=== PATIENT | male | born 1980 | race Hispanic/Latino ===

== ENCOUNTER 2021-09-03 14:27 | Inpatient (IN) | payer OTHER ==
[~2021-09-03] VITALS: Ht 170.2 cm; Wt 95.3 kg
[2021-09-03] VITALS (10 sets, daily range): BP systolic 122–146; BP diastolic 73–83
[2021-09-03 15:00] LABS: BASOPHILS % 0.3 % (0.0-1.0); HEMATOCRIT 45.4 % (38.2-49.6); HEMOGLOBIN 15.5 g/dL (14.0-18.0); LYMPHOCYTES # (AUTO) 0.6 (1.0-3.2); LYMPHOCYTES % 9.8 % (18.0-39.1); MEAN CORPUSCULAR HEMOGLOBIN 30.2 pg (28-32); MEAN CORPUSCULAR HGB CONC 34.1 g/dL (31-35); MEAN CORPUSCULAR VOLUME 88.5 fL (81-99); MONOCYTES # (AUTO) 0.3 (0.2-0.8); MONOCYTES % 5.2 % (4.4-11.3); NEUTROPHILS % 84.2 % (38.7-80.0); PLATELET COUNT 271 x10e3/uL (140-360); RED BLOOD COUNT 5.13 x10e6/uL (4.3-5.7); RED CELL DISTRIBUTION WIDTH 11.7 % (11.7-14.4)
[2021-09-03] MEDS ORDERED: SODIUM CHLORIDE 0.9% 1000ML 1,000 ML IV ONE (15:00)
[2021-09-03] MEDS ORDERED: METHYLPREDNISOLONE SOD SUCC 125 MG/2ML VIAL IV ONE (15:00)
[2021-09-03] MEDS ORDERED: CEFTRIAXONE 1 GM VIAL IM ONE (15:00)
[2021-09-03] MEDS ORDERED: SODIUM CHLORIDE 0.9% 1000ML 1,000 ML ONE ×2 (15:03→17:14)
[2021-09-03] MEDS ORDERED: SODIUM CHLORIDE 0.9% 250ML 250 ML ONE (15:09)
[2021-09-03] MEDS ORDERED: SODIUM CHLORIDE 0.9% 1000ML 1,000 ML IV SCH (15:30)
[2021-09-03] MEDS ORDERED: CEFTRIAXONE 1 GM in SODIUM CHLORIDE 0.9% 50ML 50 ML IV ONE (15:30)
[2021-09-03 15:35] LABS: ALBUMIN 3.3 g/dL (3.5-5.0); ALBUMIN/GLOBULIN RATIO 0.8 (0.8-2.0); ANION GAP 16.8 mmol/L (8-16); CALCIUM 8.7 mg/dL (8.4-10.2); CREATININE, SERUM 0.97 mg/dL (0.72-1.25); POTASSIUM 3.8 mmol/L (3.5-5.1)
[2021-09-03] MEDS ORDERED: ACETAMINOPHEN 325 MG TAB PO ONE (16:00)
[2021-09-03] MEDS: SODIUM CHLORIDE 0.9% 1000ML 1,000 ML IV SCH (17:26)
[2021-09-03] MEDS ORDERED: ALBUTEROL SULFATE HFA 8GM INHALATION AEROSOL INH PRN (17:30)
[2021-09-03] MEDS ORDERED: REMDESIVIR 100MG 200 MG in SODIUM CHLORIDE 0.9% 100 ML IV ONE (18:00)
[2021-09-03] MEDS ORDERED: TOCILIZUMAB 400 MG in SODIUM CHLORIDE 0.9% 100 ML IV SCH (19:30)
[2021-09-03] MEDS: ATORVASTATIN 10 MG TAB PO SCH (20:40)
[2021-09-03] MEDS ORDERED: DEXTROSE 50% SYRINGE 50 ML IV PRN (21:15)
[2021-09-03] MEDS: INSULIN LISPRO 100 UNIT/1 ML 3ML VIAL SQ SCH (21:58)
[2021-09-03] MEDS: ALBUTEROL SULFATE HFA 8GM INHALATION AEROSOL INH SCH (23:00)
[2021-09-04] VITALS (27 sets, daily range): BP systolic 122–154; BP diastolic 73–90
[2021-09-04] MEDS: SODIUM CHLORIDE 0.9% 1000ML 1,000 ML IV SCH ×2 (05:39→20:52)
[2021-09-04] MEDS: ACETAMINOPHEN 325 MG TAB PO PRN ×2 (06:40→19:42)
[2021-09-04] MEDS: ALBUTEROL SULFATE HFA 8GM INHALATION AEROSOL INH SCH ×3 (06:52→20:30)
[2021-09-04] MEDS: ZINC SULFATE 50 MG CAP PO SCH (08:54)
[2021-09-04] MEDS: ENOXAPARIN SOD INJ 60 MG/0.6 ML SYR SC SCH ×2 (08:54→17:26)
[2021-09-04] MEDS: DEXAMETHASONE SOD PHOS 10 MG/1 ML VIAL IV SCH (08:54)
[2021-09-04] MEDS: GEMFIBROZIL 600 MG TAB PO SCH ×2 (08:54→17:26)
[2021-09-04] MEDS: ASCORBIC ACID 500 MG TAB PO SCH ×2 (08:54→17:26)
[2021-09-04] MEDS: CEFTRIAXONE 2 GM in SODIUM CHLORIDE 0.9% 100 ML IV SCH (08:54)
[2021-09-04 09:09] LABS: BASOPHILS % 0.2 % (0.0-1.0); HEMATOCRIT 36.5 % (38.2-49.6); HEMOGLOBIN 12.4 g/dL (14.0-18.0); LYMPHOCYTES # (AUTO) 0.7 (1.0-3.2); LYMPHOCYTES % 11.2 % (18.0-39.1); MEAN CORPUSCULAR HEMOGLOBIN 30.8 pg (28-32); MEAN CORPUSCULAR VOLUME 90.8 fL (81-99); MONOCYTES # (AUTO) 0.4 (0.2-0.8); MONOCYTES % 7.4 % (4.4-11.3); NEUTROPHILS # (AUTO) 4.7 (2.1-6.9); NEUTROPHILS % 80.7 % (38.7-80.0); PLATELET COUNT 278 x10e3/uL (140-360); RED BLOOD COUNT 4.02 x10e6/uL (4.3-5.7); RED CELL DISTRIBUTION WIDTH 11.9 % (11.7-14.4)
[2021-09-04 09:35] LABS: ALBUMIN 2.3 g/dL (3.5-5.0); ALBUMIN/GLOBULIN RATIO 0.8 (0.8-2.0); ANION GAP 13.1 mmol/L (8-16); CREATININE, SERUM 0.65 mg/dL (0.72-1.25); POTASSIUM 3.1 mmol/L (3.5-5.1)
[2021-09-04 09:37] LABS: CALCIUM 6.9 mg/dL (8.4-10.2)
[2021-09-04] MEDS: INSULIN LISPRO 100 UNIT/1 ML 3ML VIAL SQ SCH ×3 (11:30→20:52)
[2021-09-04] MEDS: ATORVASTATIN 10 MG TAB PO SCH (20:51)
[2021-09-05] VITALS (23 sets, daily range): BP systolic 126–152; BP diastolic 61–87
[2021-09-05] MEDS: ALBUTEROL SULFATE HFA 8GM INHALATION AEROSOL INH SCH ×4 (00:15→19:15)
[2021-09-05] MEDS: ACETAMINOPHEN 325 MG TAB PO PRN ×2 (04:05→20:48)
[2021-09-05 05:24] LABS: BASOPHILS % 0.4 % (0.0-1.0); EOSINOPHILS % 0.2 % (0.0-6.0); HEMOGLOBIN 12.7 g/dL (14.0-18.0); LYMPHOCYTES # (AUTO) 0.7 (1.0-3.2); LYMPHOCYTES % 12.1 % (18.0-39.1); MEAN CORPUSCULAR HEMOGLOBIN 30.7 pg (28-32); MEAN CORPUSCULAR HGB CONC 33.4 g/dL (31-35); MEAN CORPUSCULAR VOLUME 91.8 fL (81-99); MONOCYTES # (AUTO) 0.3 (0.2-0.8); MONOCYTES % 6.1 % (4.4-11.3); NEUTROPHILS # (AUTO) 4.5 (2.1-6.9); NEUTROPHILS % 80.7 % (38.7-80.0); PLATELET COUNT 333 x10e3/uL (140-360); RED BLOOD COUNT 4.14 x10e6/uL (4.3-5.7); RED CELL DISTRIBUTION WIDTH 11.9 % (11.7-14.4)
[2021-09-05 05:58] LABS: ALBUMIN 2.5 g/dL (3.5-5.0); ALBUMIN/GLOBULIN RATIO 0.8 (0.8-2.0); ANION GAP 12.6 mmol/L (8-16); CREATININE, SERUM 0.76 mg/dL (0.72-1.25); POTASSIUM 3.6 mmol/L (3.5-5.1)
[2021-09-05] MEDS: CEFTRIAXONE 2 GM in SODIUM CHLORIDE 0.9% 100 ML IV SCH (08:02)
[2021-09-05] MEDS: DEXAMETHASONE SOD PHOS 10 MG/1 ML VIAL IV SCH (08:02)
[2021-09-05] MEDS: ASCORBIC ACID 500 MG TAB PO SCH ×2 (08:02→17:19)
[2021-09-05] MEDS: GEMFIBROZIL 600 MG TAB PO SCH ×2 (08:02→17:19)
[2021-09-05] MEDS: ZINC SULFATE 50 MG CAP PO SCH (08:03)
[2021-09-05] MEDS: ENOXAPARIN SOD INJ 60 MG/0.6 ML SYR SC SCH ×2 (08:03→17:19)
[2021-09-05] MEDS: INSULIN LISPRO 100 UNIT/1 ML 3ML VIAL SQ SCH ×4 (08:03→20:56)
[2021-09-05] MEDS: BARICITINIB 2 MG TABLET PO SCH (15:29)
[2021-09-05] MEDS ORDERED: REMDESIVIR 100MG 100 MG in SODIUM CHLORIDE 0.9% 100 ML IV SCH (18:00)
[2021-09-05] MEDS: SODIUM CHLORIDE 0.9% 1000ML 1,000 ML IV SCH (20:12)
[2021-09-05] MEDS: REMDESIVIR 100MG 100 MG in SODIUM CHLORIDE 0.9% 100 ML IV SCH (20:44)
[2021-09-05] MEDS: ATORVASTATIN 10 MG TAB PO SCH (20:48)
[2021-09-06] VITALS (26 sets, daily range): BP systolic 112–163; BP diastolic 59–103
[2021-09-06] MEDS: ALBUTEROL SULFATE HFA 8GM INHALATION AEROSOL INH SCH ×5 (02:10→23:50)
[2021-09-06] MEDS: ACETAMINOPHEN 325 MG TAB PO PRN ×2 (04:45→11:48)
[2021-09-06 05:38] LABS: BASOPHILS % 0.2 % (0.0-1.0); EOSINOPHILS # (AUTO) 0.1 (0.0-0.4); EOSINOPHILS % 0.6 % (0.0-6.0); HEMATOCRIT 38.1 % (38.2-49.6); HEMOGLOBIN 13.2 g/dL (14.0-18.0); LYMPHOCYTES # (AUTO) 1.1 (1.0-3.2); LYMPHOCYTES % 12.5 % (18.0-39.1); MEAN CORPUSCULAR HEMOGLOBIN 30.5 pg (28-32); MEAN CORPUSCULAR HGB CONC 34.6 g/dL (31-35); MONOCYTES # (AUTO) 0.4 (0.2-0.8); MONOCYTES % 4.5 % (4.4-11.3); NEUTROPHILS % 81.4 % (38.7-80.0); PLATELET COUNT 338 x10e3/uL (140-360); RED BLOOD COUNT 4.33 x10e6/uL (4.3-5.7)
[2021-09-06 06:09] LABS: ALBUMIN 2.4 g/dL (3.5-5.0); ALBUMIN/GLOBULIN RATIO 0.6 (0.8-2.0); ANION GAP 15.8 mmol/L (8-16); CALCIUM 8.4 mg/dL (8.4-10.2); CREATININE, SERUM 0.73 mg/dL (0.72-1.25); POTASSIUM 3.8 mmol/L (3.5-5.1)
[2021-09-06] MEDS: INSULIN LISPRO 100 UNIT/1 ML 3ML VIAL SQ SCH ×5 (07:30→20:35)
[2021-09-06] MEDS: ASCORBIC ACID 500 MG TAB PO SCH ×2 (08:22→16:31)
[2021-09-06] MEDS: CEFTRIAXONE 2 GM in SODIUM CHLORIDE 0.9% 100 ML IV SCH (08:22)
[2021-09-06] MEDS: DEXAMETHASONE SOD PHOS 10 MG/1 ML VIAL IV SCH (08:22)
[2021-09-06] MEDS: BARICITINIB 2 MG TABLET PO SCH (08:22)
[2021-09-06] MEDS: ZINC SULFATE 50 MG CAP PO SCH (08:22)
[2021-09-06] MEDS: ENOXAPARIN SOD INJ 60 MG/0.6 ML SYR SC SCH ×2 (08:22→16:31)
[2021-09-06] MEDS: GEMFIBROZIL 600 MG TAB PO SCH ×2 (08:22→16:31)
[2021-09-06] MEDS ORDERED: BARICITINIB 2 MG TABLET PO SCH (09:00)
[2021-09-06] MEDS ORDERED: DEXMEDETOMIDINE 100 ML IV PRN (10:45)
[2021-09-06] MEDS: DEXMEDETOMIDINE 100 ML IV PRN ×2 (14:12→21:15)
[2021-09-06] MEDS: SODIUM CHLORIDE 0.9% 1000ML 1,000 ML IV SCH (15:20)
[2021-09-06] MEDS ORDERED: ONDANSETRON HCL INJ 2MG/ML 2ML 2 MG/ML VIAL IV PRN (17:15)
[2021-09-06] MEDS: REMDESIVIR 100MG 100 MG in SODIUM CHLORIDE 0.9% 100 ML IV SCH (20:03)
[2021-09-06] MEDS: ATORVASTATIN 10 MG TAB PO SCH (20:03)
[2021-09-07] VITALS (16 sets, daily range): BP systolic 104–148; BP diastolic 65–95
[2021-09-07] MEDS: ACETAMINOPHEN 325 MG TAB PO PRN ×2 (05:28→20:19)
[2021-09-07] MEDS: ALBUTEROL SULFATE HFA 8GM INHALATION AEROSOL INH SCH ×3 (06:00→18:00)
[2021-09-07] MEDS: DEXMEDETOMIDINE 100 ML IV PRN ×3 (06:19→22:20)
[2021-09-07] MEDS: SODIUM CHLORIDE 0.9% 1000ML 1,000 ML IV SCH ×2 (06:20→21:22)
[2021-09-07 06:31] LABS: BASOPHILS % 0.1 % (0.0-1.0); EOSINOPHILS % 0.4 % (0.0-6.0); HEMATOCRIT 42.7 % (38.2-49.6); HEMOGLOBIN 14.4 g/dL (14.0-18.0); LYMPHOCYTES # (AUTO) 0.4 (1.0-3.2); LYMPHOCYTES % 4.5 % (18.0-39.1); MEAN CORPUSCULAR HEMOGLOBIN 30.3 pg (28-32); MEAN CORPUSCULAR HGB CONC 33.7 g/dL (31-35); MEAN CORPUSCULAR VOLUME 89.7 fL (81-99); MONOCYTES # (AUTO) 0.3 (0.2-0.8); MONOCYTES % 3.6 % (4.4-11.3); NEUTROPHILS # (AUTO) 8.1 (2.1-6.9); NEUTROPHILS % 90.3 % (38.7-80.0); PLATELET COUNT 253 x10e3/uL (140-360); RED BLOOD COUNT 4.76 x10e6/uL (4.3-5.7); RED CELL DISTRIBUTION WIDTH 12.1 % (11.7-14.4)
[2021-09-07 06:55] LABS: ALBUMIN 2.3 g/dL (3.5-5.0); ALBUMIN/GLOBULIN RATIO 0.5 (0.8-2.0); ANION GAP 17.4 mmol/L (8-16); CALCIUM 8.3 mg/dL (8.4-10.2); CREATININE, SERUM 0.8 mg/dL (0.72-1.25); POTASSIUM 4.4 mmol/L (3.5-5.1)
[2021-09-07] MEDS: CEFTRIAXONE 2 GM in SODIUM CHLORIDE 0.9% 100 ML IV SCH (08:25)
[2021-09-07] MEDS: DEXAMETHASONE SOD PHOS 10 MG/1 ML VIAL IV SCH (08:25)
[2021-09-07] MEDS: ENOXAPARIN SOD INJ 60 MG/0.6 ML SYR SC SCH (08:26)
[2021-09-07] MEDS: ZINC SULFATE 50 MG CAP PO SCH (09:00)
[2021-09-07] MEDS: ASCORBIC ACID 500 MG TAB PO SCH ×2 (09:00→16:33)
[2021-09-07] MEDS: GEMFIBROZIL 600 MG TAB PO SCH ×2 (09:00→16:31)
[2021-09-07] MEDS: BARICITINIB 2 MG TABLET PO SCH (09:00)
[2021-09-07] MEDS: INSULIN LISPRO 100 UNIT/1 ML 3ML VIAL SQ SCH ×3 (12:22→20:39)
[2021-09-07] MEDS ORDERED: WATER STERILE 10 ML VIAL ONE ×2 (14:25→14:26)
[2021-09-07] MEDS ORDERED: ETOMIDATE 2 MG/ML 10 ML INJ IV ONE (14:25)
[2021-09-07] MEDS ORDERED: VECURONIUM BROMIDE FOR INJ 20 MG VIAL ONE (14:26)
[2021-09-07] MEDS ORDERED: SUCCINYLCHOLINE CHLORIDE 20 MG/ML 10ML VIAL ONE (14:26)
[2021-09-07] MEDS: HEPARIN 25,000 UNIT 1,400 UNIT in DEXTROSE 5% 250ML 250 ML IV SCH ×2 (15:59→22:19)
[2021-09-07] MEDS: REMDESIVIR 100MG 100 MG in SODIUM CHLORIDE 0.9% 100 ML IV SCH (20:18)
[2021-09-07] MEDS: ATORVASTATIN 10 MG TAB PO SCH (20:18)
[2021-09-08] VITALS (24 sets, daily range): BP systolic 81–144; BP diastolic 48–96
[2021-09-08 04:10] LABS: BASOPHILS # (AUTO) 0.1 (0.0-0.1); BASOPHILS % 0.4 % (0.0-1.0); EOSINOPHILS # (AUTO) 0.1 (0.0-0.4); EOSINOPHILS % 0.4 % (0.0-6.0); HEMATOCRIT 49.6 % (38.2-49.6); HEMOGLOBIN 15.9 g/dL (14.0-18.0); LYMPHOCYTES # (AUTO) 1.2 (1.0-3.2); MEAN CORPUSCULAR HEMOGLOBIN 30.5 pg (28-32); MEAN CORPUSCULAR HGB CONC 32.1 g/dL (31-35); MONOCYTES # (AUTO) 0.4 (0.2-0.8); MONOCYTES % 2.9 % (4.4-11.3); NEUTROPHILS # (AUTO) 11.8 (2.1-6.9); NEUTROPHILS % 86.4 % (38.7-80.0); PLATELET COUNT 269 x10e3/uL (140-360); RED BLOOD COUNT 5.22 x10e6/uL (4.3-5.7); RED CELL DISTRIBUTION WIDTH 12.6 % (11.7-14.4)
[2021-09-08 04:29] LABS: ALBUMIN 2.2 g/dL (3.5-5.0); ALBUMIN/GLOBULIN RATIO 0.4 (0.8-2.0); ANION GAP 18.8 mmol/L (8-16); CALCIUM 8.6 mg/dL (8.4-10.2); CREATININE, SERUM 0.96 mg/dL (0.72-1.25); POTASSIUM 4.8 mmol/L (3.5-5.1)
[2021-09-08] MEDS: HEPARIN 25,000 UNIT 1,400 UNIT in DEXTROSE 5% 250ML 250 ML IV SCH ×4 (04:29→22:04)
[2021-09-08] MEDS: DEXMEDETOMIDINE 100 ML IV PRN (05:47)
[2021-09-08] MEDS: ALBUTEROL SULFATE HFA 8GM INHALATION AEROSOL INH SCH ×4 (06:00→18:00)
[2021-09-08] MEDS ORDERED: FENTANYL 2000MCG/NS 250 250 ML ONE (06:31)
[2021-09-08] MEDS ORDERED: MIDAZOLAM HCL 5MG/ML 10ML VIAL 100 ML IV ONE (06:31)
[2021-09-08] MEDS ORDERED: PROPOFOL IV EMULSION 10MG/ML 100 ML ONE (06:51)
[2021-09-08] MEDS: INSULIN LISPRO 100 UNIT/1 ML 3ML VIAL SQ SCH ×4 (07:30→21:05)
[2021-09-08 08:17] LABS: ABG HCO3 19 mmol/L (22-26); ABG PCO2 59 mmHg (35-45); ABG PH 7.13 (7.35-7.45); ABG PO2 104 mmHg (80-105); ABG TCO2 21
[2021-09-08] MEDS ORDERED: SODIUM CHLORIDE 0.9% IV ONE (08:30)
[2021-09-08] MEDS ORDERED: ACETAMINOPHEN 1000 MG/100 ML IV PRN (09:00)
[2021-09-08] MEDS: DEXAMETHASONE SOD PHOS 10 MG/1 ML VIAL IV SCH (09:24)
[2021-09-08] MEDS: CEFTRIAXONE 2 GM in SODIUM CHLORIDE 0.9% 100 ML IV SCH (09:24)
[2021-09-08 10:33] LABS: ABG PH 7.13 (7.35-7.45)
[2021-09-08 10:34] LABS: ABG PCO2 62 mmHg (35-45); ABG PO2 128 mmHg (80-105)
[2021-09-08 10:35] LABS: ABG HCO3 21 mmol/L (22-26); ABG TCO2 23
[2021-09-08] MEDS: BARICITINIB 2 MG TABLET PO SCH (10:38)
[2021-09-08] MEDS: ASCORBIC ACID 500 MG TAB PO SCH ×2 (10:38→17:07)
[2021-09-08] MEDS: ZINC SULFATE 50 MG CAP PO SCH (10:38)
[2021-09-08] MEDS: GEMFIBROZIL 600 MG TAB PO SCH ×2 (10:38→17:07)
[2021-09-08] MEDS: SODIUM CHLORIDE 0.9% 1000ML 1,000 ML IV SCH ×2 (10:38→13:39)
[2021-09-08] MEDS: MIDAZOLAM HCL 5MG/ML 10ML VIAL 100 ML IV PRN ×2 (11:33→22:22)
[2021-09-08] MEDS: FENTANYL 2000MCG/NS 250 250 ML IV PRN ×2 (12:58→19:49)
[2021-09-08] MEDS: PIPERACILLIN/TAZOBACTAM 3.375 GM in SODIUM CHLORIDE 0.9% 50ML 50 ML IV SCH ×2 (13:39→21:11)
[2021-09-08] MEDS: REMDESIVIR 100MG 100 MG in SODIUM CHLORIDE 0.9% 100 ML IV SCH (20:30)
[2021-09-08] MEDS ORDERED: Vancomycin IV 1 GM in SODIUM CHLORIDE 0.9% 250ML 250 ML IV ONE (20:30)
[2021-09-08] MEDS: ATORVASTATIN 10 MG TAB PO SCH (21:11)
[2021-09-08] MEDS: ROCURONIUM 1250MG/NS 250 250 ML IV PRN (22:20)
[2021-09-09] VITALS (25 sets, daily range): BP systolic 108–148; BP diastolic 62–82
[2021-09-09] MEDS: HEPARIN 25,000 UNIT 1,400 UNIT in DEXTROSE 5% 250ML 250 ML IV SCH ×3 (01:24→19:27)
[2021-09-09] MEDS: FENTANYL 2000MCG/NS 250 250 ML IV PRN ×3 (02:33→23:56)
[2021-09-09] MEDS: MIDAZOLAM HCL 5MG/ML 10ML VIAL 100 ML IV PRN ×5 (03:12→23:58)
[2021-09-09] MEDS: SODIUM CHLORIDE 0.9% 1000ML 1,000 ML IV SCH (03:16)
[2021-09-09 04:46] LABS: BASOPHILS % 0.1 % (0.0-1.0); EOSINOPHILS % 0.1 % (0.0-6.0); HEMATOCRIT 36.7 % (38.2-49.6); HEMOGLOBIN 11.9 g/dL (14.0-18.0); LYMPHOCYTES # (AUTO) 0.8 (1.0-3.2); LYMPHOCYTES % 9.8 % (18.0-39.1); MEAN CORPUSCULAR HEMOGLOBIN 30.5 pg (28-32); MEAN CORPUSCULAR HGB CONC 32.4 g/dL (31-35); MEAN CORPUSCULAR VOLUME 94.1 fL (81-99); MONOCYTES # (AUTO) 0.3 (0.2-0.8); MONOCYTES % 3.5 % (4.4-11.3); NEUTROPHILS # (AUTO) 7.3 (2.1-6.9); PLATELET COUNT 313 x10e3/uL (140-360); RED CELL DISTRIBUTION WIDTH 13.2 % (11.7-14.4)
[2021-09-09] MEDS: PROPOFOL IV EMULSION 10MG/ML 100 ML IV PRN ×2 (04:50→17:04)
[2021-09-09] MEDS: PIPERACILLIN/TAZOBACTAM 3.375 GM in SODIUM CHLORIDE 0.9% 50ML 50 ML IV SCH (05:17)
[2021-09-09 05:26] LABS: ALBUMIN 1.7 g/dL (3.5-5.0); ALBUMIN/GLOBULIN RATIO 0.4 (0.8-2.0); ANION GAP 14.1 mmol/L (8-16); CALCIUM 7.2 mg/dL (8.4-10.2); POTASSIUM 5.1 mmol/L (3.5-5.1)
[2021-09-09] MEDS: ALBUTEROL SULFATE HFA 8GM INHALATION AEROSOL INH SCH ×4 (06:00→18:00)
[2021-09-09] MEDS: INSULIN LISPRO 100 UNIT/1 ML 3ML VIAL SQ SCH ×4 (07:30→23:55)
[2021-09-09] MEDS: ASCORBIC ACID 500 MG TAB PO SCH ×2 (08:19→16:30)
[2021-09-09] MEDS: ZINC SULFATE 50 MG CAP PO SCH (08:19)
[2021-09-09] MEDS: DEXAMETHASONE SOD PHOS 10 MG/1 ML VIAL IV SCH (08:19)
[2021-09-09 08:44] LABS: ABG HCO3 20 mmol/L (22-26); ABG PCO2 37 mmHg (35-45); ABG PH 7.34 (7.35-7.45); ABG PO2 219 mmHg (80-105); ABG TCO2 21
[2021-09-09] MEDS ORDERED: Vancomycin IV 1 GM in SODIUM CHLORIDE 0.9% 250ML 250 ML IV SCH (09:00)
[2021-09-09] MEDS ORDERED: ALBUMIN 25% 25GM 100ML 0.25 GM/ML BTL IV NR ×2 (12:45→16:00)
[2021-09-09] MEDS: LINEZOLID 600 MG/D5W 300ML 300 ML IV SCH (13:57)
[2021-09-09] MEDS ORDERED: SODIUM CHLORIDE 0.9% 1000ML 1,000 ML IV ONE (14:45)
[2021-09-09] MEDS ORDERED: SODIUM BICARBONATE 8.4% 150 ML in DEXTROSE 5% 1,000 ML IV ONE (15:00)
[2021-09-09] MEDS ORDERED: ALBUMIN 25% 25GM 100ML 100 ML ONE (16:16)
[2021-09-09] MEDS ORDERED: PIPERACILLIN/TAZOBACTAM 3.375 GM in SODIUM CHLORIDE 0.9% 50ML 50 ML IV SCH (17:00)
[2021-09-09] MEDS ORDERED: HEPARIN 25,000 UNIT DRIP IV ONE (19:36)
[2021-09-09] MEDS: ROCURONIUM 1250MG/NS 250 250 ML IV PRN (20:16)
[2021-09-09] MEDS: ATORVASTATIN 10 MG TAB PO SCH (22:30)
[2021-09-10] VITALS (25 sets, daily range): BP systolic 130–154; BP diastolic 63–89
[2021-09-10] MEDS: LINEZOLID 600 MG/D5W 300ML 300 ML IV SCH ×2 (00:20→13:35)
[2021-09-10] MEDS: ALBUTEROL SULFATE HFA 8GM INHALATION AEROSOL INH SCH ×4 (06:00→18:00)
[2021-09-10] MEDS: INSULIN LISPRO 100 UNIT/1 ML 3ML VIAL SQ SCH ×4 (06:00→23:53)
[2021-09-10 06:23] LABS: BASOPHILS % 0.1 % (0.0-1.0); EOSINOPHILS % 0.3 % (0.0-6.0); HEMATOCRIT 32.6 % (38.2-49.6); HEMOGLOBIN 10.5 g/dL (14.0-18.0); LYMPHOCYTES # (AUTO) 0.7 (1.0-3.2); LYMPHOCYTES % 6.8 % (18.0-39.1); MEAN CORPUSCULAR HEMOGLOBIN 30.5 pg (28-32); MEAN CORPUSCULAR HGB CONC 32.2 g/dL (31-35); MEAN CORPUSCULAR VOLUME 94.8 fL (81-99); MONOCYTES # (AUTO) 0.5 (0.2-0.8); MONOCYTES % 4.4 % (4.4-11.3); NEUTROPHILS # (AUTO) 8.8 (2.1-6.9); PLATELET COUNT 294 x10e3/uL (140-360); RED BLOOD COUNT 3.44 x10e6/uL (4.3-5.7); RED CELL DISTRIBUTION WIDTH 13.4 % (11.7-14.4)
[2021-09-10] MEDS: FENTANYL 2000MCG/NS 250 250 ML IV PRN ×3 (06:35→18:36)
[2021-09-10] MEDS: MIDAZOLAM HCL 5MG/ML 10ML VIAL 100 ML IV PRN ×4 (06:35→21:10)
[2021-09-10] MEDS: PROPOFOL IV EMULSION 10MG/ML 100 ML IV PRN ×2 (06:36→16:23)
[2021-09-10 06:46] LABS: ALBUMIN/GLOBULIN RATIO 0.6 (0.8-2.0); ANION GAP 11.3 mmol/L (8-16); CALCIUM 7.2 mg/dL (8.4-10.2); CREATININE, SERUM 1.51 mg/dL (0.72-1.25); POTASSIUM 4.3 mmol/L (3.5-5.1)
[2021-09-10] MEDS: HEPARIN 25,000 UNIT 1,400 UNIT in DEXTROSE 5% 250ML 250 ML IV SCH ×3 (06:48→21:10)
[2021-09-10] MEDS ORDERED: Vancomycin IV 1 GM in SODIUM CHLORIDE 0.9% 250ML 250 ML IV SCH (09:00)
[2021-09-10] MEDS: ZINC SULFATE 50 MG CAP PO SCH (09:46)
[2021-09-10] MEDS: ASCORBIC ACID 500 MG TAB PO SCH ×2 (09:46→17:36)
[2021-09-10] MEDS: CEFEPIME 1 GM in SODIUM CHLORIDE 0.9% 50ML 50 ML IV SCH (09:46)
[2021-09-10] MEDS: METHYLPREDNISOLONE SOD SUCC 40 MG/ML VIAL 1ML IV SCH (10:57)
[2021-09-10] MEDS: INSULIN GLARGINE 100 UNITS/ML VIAL SQ SCH ×2 (10:58→21:20)
[2021-09-10 11:54] LABS: ABG HCO3 24 mmol/L (22-26); ABG PCO2 38 mmHg (35-45); ABG PO2 177 mmHg (80-105)
[2021-09-10 11:55] LABS: ABG TCO2 25
[2021-09-10] MEDS: ROCURONIUM 1250MG/NS 250 250 ML IV PRN (16:24)
[2021-09-10] MEDS: ATORVASTATIN 10 MG TAB PO SCH (22:00)
[2021-09-11] VITALS (28 sets, daily range): BP systolic 95–166; BP diastolic 42–89
[2021-09-11] MEDS: LINEZOLID 600 MG/D5W 300ML 300 ML IV SCH ×2 (00:36→12:17)
[2021-09-11] MEDS: MIDAZOLAM HCL 5MG/ML 10ML VIAL 100 ML IV PRN ×5 (02:10→21:20)
[2021-09-11] MEDS: FENTANYL 2000MCG/NS 250 250 ML IV PRN ×4 (02:11→22:11)
[2021-09-11] MEDS: PROPOFOL IV EMULSION 10MG/ML 100 ML IV PRN ×2 (02:11→17:08)
[2021-09-11] MEDS: ALBUTEROL SULFATE HFA 8GM INHALATION AEROSOL INH SCH ×4 (06:00→16:42)
[2021-09-11 06:52] LABS: BASOPHILS % 0.1 % (0.0-1.0); EOSINOPHILS % 0.2 % (0.0-6.0); HEMATOCRIT 35.3 % (38.2-49.6); HEMOGLOBIN 11.2 g/dL (14.0-18.0); LYMPHOCYTES # (AUTO) 0.6 (1.0-3.2); LYMPHOCYTES % 5.5 % (18.0-39.1); MEAN CORPUSCULAR HEMOGLOBIN 30.5 pg (28-32); MEAN CORPUSCULAR HGB CONC 31.7 g/dL (31-35); MEAN CORPUSCULAR VOLUME 96.2 fL (81-99); MONOCYTES # (AUTO) 0.5 (0.2-0.8); MONOCYTES % 4.8 % (4.4-11.3); NEUTROPHILS # (AUTO) 8.7 (2.1-6.9); NEUTROPHILS % 87.4 % (38.7-80.0); PLATELET COUNT 276 x10e3/uL (140-360); RED BLOOD COUNT 3.67 x10e6/uL (4.3-5.7); RED CELL DISTRIBUTION WIDTH 13.5 % (11.7-14.4)
[2021-09-11 07:15] LABS: ALBUMIN 1.9 g/dL (3.5-5.0); ALBUMIN/GLOBULIN RATIO 0.5 (0.8-2.0); ANION GAP 12.8 mmol/L (8-16); CALCIUM 7.3 mg/dL (8.4-10.2); CREATININE, SERUM 1.1 mg/dL (0.72-1.25); POTASSIUM 4.8 mmol/L (3.5-5.1)
[2021-09-11] MEDS: INSULIN LISPRO 100 UNIT/1 ML 3ML VIAL SQ SCH ×4 (07:44→23:49)
[2021-09-11] MEDS: ZINC SULFATE 50 MG CAP PO SCH (09:00)
[2021-09-11] MEDS: ASCORBIC ACID 500 MG TAB PO SCH ×2 (09:00→16:40)
[2021-09-11] MEDS: METHYLPREDNISOLONE SOD SUCC 40 MG/ML VIAL 1ML IV SCH (09:41)
[2021-09-11] MEDS: CEFEPIME 1 GM in SODIUM CHLORIDE 0.9% 50ML 50 ML IV SCH (09:41)
[2021-09-11 12:47] LABS: ABG HCO3 27 mmol/L (22-26); ABG PCO2 49 mmHg (35-45); ABG PH 7.34 (7.35-7.45); ABG PO2 82 mmHg (80-105); ABG TCO2 28
[2021-09-11] MEDS: ROCURONIUM 1250MG/NS 250 250 ML IV PRN (13:19)
[2021-09-11] MEDS ORDERED: SODIUM CHLORIDE 0.9% 1000ML 1,000 ML ONE (13:52)
[2021-09-11] MEDS ORDERED: CALCIUM GLUCONATE 10% INJ 4.65 MEQ in SODIUM CHLORIDE 0.9% 50ML 50 ML IV ONE (14:00)
[2021-09-11] MEDS: FUROSEMIDE INJ 10 MG/ML 4 ML VIAL IV SCH (14:59)
[2021-09-11] MEDS: INSULIN GLARGINE 100 UNITS/ML VIAL SQ SCH (21:41)
[2021-09-11] MEDS: ATORVASTATIN 10 MG TAB PO SCH (21:45)
[2021-09-12] VITALS (27 sets, daily range): BP systolic 67–203; BP diastolic 51–98
[2021-09-12] MEDS: ALBUTEROL SULFATE HFA 8GM INHALATION AEROSOL INH SCH ×4 (00:22→18:00)
[2021-09-12] MEDS: LINEZOLID 600 MG/D5W 300ML 300 ML IV SCH ×2 (00:39→13:58)
[2021-09-12] MEDS: MIDAZOLAM HCL 5MG/ML 10ML VIAL 100 ML IV PRN (03:24)
[2021-09-12] MEDS: PROPOFOL IV EMULSION 10MG/ML 100 ML IV PRN ×2 (03:34→13:50)
[2021-09-12 05:26] LABS: BASOPHILS % 0.1 % (0.0-1.0); EOSINOPHILS # (AUTO) 0.1 (0.0-0.4); EOSINOPHILS % 0.6 % (0.0-6.0); HEMATOCRIT 35.6 % (38.2-49.6); HEMOGLOBIN 11.2 g/dL (14.0-18.0); LYMPHOCYTES % 9.1 % (18.0-39.1); MEAN CORPUSCULAR HEMOGLOBIN 30.3 pg (28-32); MEAN CORPUSCULAR HGB CONC 31.5 g/dL (31-35); MEAN CORPUSCULAR VOLUME 96.2 fL (81-99); MONOCYTES # (AUTO) 0.4 (0.2-0.8); MONOCYTES % 3.9 % (4.4-11.3); NEUTROPHILS # (AUTO) 9.4 (2.1-6.9); NEUTROPHILS % 83.7 % (38.7-80.0); PLATELET COUNT 334 x10e3/uL (140-360); RED CELL DISTRIBUTION WIDTH 13.4 % (11.7-14.4)
[2021-09-12 05:41] LABS: ALBUMIN/GLOBULIN RATIO 0.6 (0.8-2.0); ANION GAP 6.8 mmol/L (8-16); CALCIUM 7.6 mg/dL (8.4-10.2); CREATININE, SERUM 0.97 mg/dL (0.72-1.25); POTASSIUM 3.8 mmol/L (3.5-5.1)
[2021-09-12] MEDS: INSULIN LISPRO 100 UNIT/1 ML 3ML VIAL SQ SCH ×3 (06:50→17:51)
[2021-09-12] MEDS: FENTANYL 2000MCG/NS 250 250 ML IV PRN ×2 (06:58→12:45)
[2021-09-12] MEDS: HEPARIN 25,000 UNIT 1,400 UNIT in DEXTROSE 5% 250ML 250 ML IV SCH (07:00)
[2021-09-12] MEDS ORDERED: HEPARIN 25,000 UNIT DRIP IV ONE ×2 (07:24→23:56)
[2021-09-12] MEDS ORDERED: METOPROLOL TARTRATE INJ 1 MG/ML VIAL IV ONE ×3 (08:10→14:45)
[2021-09-12] MEDS: ROCURONIUM 1250MG/NS 250 250 ML IV PRN (09:51)
[2021-09-12 09:57] LABS: ABG HCO3 30 mmol/L (22-26); ABG PCO2 51 mmHg (35-45); ABG PH 7.37 (7.35-7.45); ABG PO2 125 mmHg (80-105); ABG TCO2 31
[2021-09-12] MEDS: FUROSEMIDE INJ 10 MG/ML 4 ML VIAL IV SCH (10:08)
[2021-09-12] MEDS: CEFEPIME 1 GM in SODIUM CHLORIDE 0.9% 50ML 50 ML IV SCH (10:08)
[2021-09-12] MEDS: METHYLPREDNISOLONE SOD SUCC 40 MG/ML VIAL 1ML IV SCH (10:09)
[2021-09-12] MEDS: ZINC SULFATE 50 MG CAP PO SCH (10:11)
[2021-09-12] MEDS: ASCORBIC ACID 500 MG TAB PO SCH ×2 (10:11→17:31)
[2021-09-12] MEDS: MUPIROCIN 2% OINT 22 GM TUBE TOP SCH (12:00)
[2021-09-12] MEDS: DEXMEDETOMIDINE 100 ML IV PRN (12:49)
[2021-09-12] MEDS: LORAZEPAM 1 MG TAB NG SCH ×2 (13:39→17:31)
[2021-09-12] MEDS ORDERED: FUROSEMIDE INJ 10 MG/ML 2 ML VIAL IV NR (16:45)
[2021-09-12] MEDS: ATORVASTATIN 10 MG TAB PO SCH (21:39)
[2021-09-12] MEDS: INSULIN GLARGINE 100 UNITS/ML VIAL SQ SCH (21:39)
[2021-09-13] VITALS (24 sets, daily range): BP systolic 102–154; BP diastolic 56–83
[2021-09-13] MEDS: INSULIN LISPRO 100 UNIT/1 ML 3ML VIAL SQ SCH ×4 (00:18→18:04)
[2021-09-13] MEDS: HEPARIN 25,000 UNIT 1,400 UNIT in DEXTROSE 5% 250ML 250 ML IV SCH (00:19)
[2021-09-13] MEDS: MIDAZOLAM HCL 5MG/ML 10ML VIAL 100 ML IV PRN ×3 (00:20→18:05)
[2021-09-13] MEDS: LORAZEPAM 1 MG TAB NG SCH ×5 (00:24→23:34)
[2021-09-13] MEDS: LINEZOLID 600 MG/D5W 300ML 300 ML IV SCH ×2 (00:24→12:23)
[2021-09-13] MEDS: PROPOFOL IV EMULSION 10MG/ML 100 ML IV PRN ×3 (02:28→22:50)
[2021-09-13] MEDS: FENTANYL 2000MCG/NS 250 250 ML IV PRN ×3 (03:25→19:05)
[2021-09-13 04:55] LABS: BASOPHILS % 0.1 % (0.0-1.0); EOSINOPHILS % 0.4 % (0.0-6.0); HEMATOCRIT 34.6 % (38.2-49.6); HEMOGLOBIN 10.9 g/dL (14.0-18.0); LYMPHOCYTES # (AUTO) 1.2 (1.0-3.2); LYMPHOCYTES % 12.8 % (18.0-39.1); MEAN CORPUSCULAR HEMOGLOBIN 30.3 pg (28-32); MEAN CORPUSCULAR HGB CONC 31.5 g/dL (31-35); MEAN CORPUSCULAR VOLUME 96.1 fL (81-99); MONOCYTES # (AUTO) 0.4 (0.2-0.8); MONOCYTES % 4.3 % (4.4-11.3); NEUTROPHILS # (AUTO) 7.2 (2.1-6.9); NEUTROPHILS % 78.7 % (38.7-80.0); PLATELET COUNT 333 x10e3/uL (140-360); RED CELL DISTRIBUTION WIDTH 13.1 % (11.7-14.4)
[2021-09-13 05:14] LABS: ANION GAP 7.8 mmol/L (8-16); CALCIUM 7.8 mg/dL (8.4-10.2); CREATININE, SERUM 1.08 mg/dL (0.72-1.25); POTASSIUM 3.8 mmol/L (3.5-5.1)
[2021-09-13] MEDS: ALBUTEROL SULFATE HFA 8GM INHALATION AEROSOL INH SCH ×4 (06:00→18:00)
[2021-09-13] MEDS: ACETAMINOPHEN 325 MG TAB PO PRN (08:29)
[2021-09-13] MEDS: CEFEPIME 1 GM in SODIUM CHLORIDE 0.9% 50ML 50 ML IV SCH (10:34)
[2021-09-13] MEDS: FUROSEMIDE INJ 10 MG/ML 4 ML VIAL IV SCH (10:34)
[2021-09-13] MEDS: ASCORBIC ACID 500 MG TAB PO SCH ×2 (10:34→17:59)
[2021-09-13] MEDS: METHYLPREDNISOLONE SOD SUCC 40 MG/ML VIAL 1ML IV SCH (10:34)
[2021-09-13] MEDS: MUPIROCIN 2% OINT 22 GM TUBE TOP SCH (10:34)
[2021-09-13] MEDS: ZINC SULFATE 50 MG CAP PO SCH (10:36)
[2021-09-13] MEDS: ROCURONIUM 1250MG/NS 250 250 ML IV PRN (10:36)
[2021-09-13] MEDS: DEXMEDETOMIDINE 100 ML IV PRN (10:57)
[2021-09-13 11:19] LABS: ABG HCO3 33 mmol/L (22-26); ABG PCO2 44 mmHg (35-45); ABG PH 7.48 (7.35-7.45); ABG PO2 85 mmHg (80-105); ABG TCO2 35
[2021-09-13] MEDS ORDERED: CALCIUM GLUCONATE 10% INJ 4.65 MEQ in SODIUM CHLORIDE 0.9% 50ML 50 ML IV ONE (20:15)
[2021-09-13] MEDS: INSULIN GLARGINE 100 UNITS/ML VIAL SQ SCH (21:46)
[2021-09-13] MEDS: ATORVASTATIN 10 MG TAB PO SCH (21:46)
[2021-09-13] MEDS: ENOXAPARIN SODIUM INJ 100 MG/ML SYR SC SCH (21:46)
[2021-09-14] VITALS (23 sets, daily range): BP systolic 98–167; BP diastolic 48–89
[2021-09-14] MEDS: LINEZOLID 600 MG/D5W 300ML 300 ML IV SCH (00:02)
[2021-09-14] MEDS: MIDAZOLAM HCL 5MG/ML 10ML VIAL 100 ML IV PRN ×4 (00:43→21:00)
[2021-09-14] MEDS: FENTANYL 2000MCG/NS 250 250 ML IV PRN ×2 (01:15→21:00)
[2021-09-14 04:48] LABS: BASOPHILS % 0.1 % (0.0-1.0); EOSINOPHILS # (AUTO) 0.1 (0.0-0.4); EOSINOPHILS % 0.7 % (0.0-6.0); HEMATOCRIT 30.5 % (38.2-49.6); HEMOGLOBIN 9.9 g/dL (14.0-18.0); LYMPHOCYTES # (AUTO) 0.9 (1.0-3.2); LYMPHOCYTES % 10.9 % (18.0-39.1); MEAN CORPUSCULAR HEMOGLOBIN 30.7 pg (28-32); MEAN CORPUSCULAR HGB CONC 32.5 g/dL (31-35); MEAN CORPUSCULAR VOLUME 94.4 fL (81-99); MONOCYTES # (AUTO) 0.5 (0.2-0.8); MONOCYTES % 5.2 % (4.4-11.3); NEUTROPHILS # (AUTO) 6.8 (2.1-6.9); NEUTROPHILS % 78.7 % (38.7-80.0); PLATELET COUNT 288 x10e3/uL (140-360); RED BLOOD COUNT 3.23 x10e6/uL (4.3-5.7); RED CELL DISTRIBUTION WIDTH 12.7 % (11.7-14.4)
[2021-09-14 05:08] LABS: ALBUMIN 1.8 g/dL (3.5-5.0); ANION GAP 8.8 mmol/L (8-16); CALCIUM 7.1 mg/dL (8.4-10.2); CREATININE, SERUM 0.71 mg/dL (0.72-1.25); POTASSIUM 3.8 mmol/L (3.5-5.1)
[2021-09-14 05:09] LABS: ALBUMIN/GLOBULIN RATIO 0.5 (0.8-2.0)
[2021-09-14] MEDS: LORAZEPAM 1 MG TAB NG SCH ×3 (05:34→18:00)
[2021-09-14] MEDS: ROCURONIUM 1250MG/NS 250 250 ML IV PRN ×2 (05:58→20:40)
[2021-09-14] MEDS: ALBUTEROL SULFATE HFA 8GM INHALATION AEROSOL INH SCH ×4 (06:00→18:00)
[2021-09-14] MEDS: INSULIN LISPRO 100 UNIT/1 ML 3ML VIAL SQ SCH ×4 (06:07→18:32)
[2021-09-14] MEDS: FUROSEMIDE INJ 10 MG/ML 4 ML VIAL IV SCH (07:29)
[2021-09-14] MEDS: CEFEPIME 1 GM in SODIUM CHLORIDE 0.9% 50ML 50 ML IV SCH (07:29)
[2021-09-14] MEDS: ENOXAPARIN SODIUM INJ 100 MG/ML SYR SC SCH ×2 (07:30→20:30)
[2021-09-14] MEDS: MUPIROCIN 2% OINT 22 GM TUBE TOP SCH (07:30)
[2021-09-14] MEDS: METHYLPREDNISOLONE SOD SUCC 40 MG/ML VIAL 1ML IV SCH (07:30)
[2021-09-14] MEDS: ASCORBIC ACID 500 MG TAB PO SCH ×2 (07:30→16:25)
[2021-09-14] MEDS: ZINC SULFATE 50 MG CAP PO SCH (07:30)
[2021-09-14] MEDS: PROPOFOL IV EMULSION 10MG/ML 100 ML IV PRN ×2 (11:22→20:40)
[2021-09-14 14:01] LABS: ABG HCO3 35 mmol/L (22-26); ABG PCO2 39 mmHg (35-45); ABG PH 7.56 (7.35-7.45); ABG PO2 177 mmHg (80-105); ABG TCO2 37
[2021-09-14] MEDS: ATORVASTATIN 10 MG TAB PO SCH (20:30)
[2021-09-14] MEDS: INSULIN GLARGINE 100 UNITS/ML VIAL SQ SCH (21:00)
[2021-09-15] VITALS (16 sets, daily range): BP systolic 110–156; BP diastolic 55–96
[2021-09-15] MEDS: LORAZEPAM 1 MG TAB NG SCH ×5 (00:19→23:37)
[2021-09-15] MEDS: INSULIN LISPRO 100 UNIT/1 ML 3ML VIAL SQ SCH ×4 (00:19→18:14)
[2021-09-15] MEDS: MIDAZOLAM HCL 5MG/ML 10ML VIAL 100 ML IV PRN ×7 (00:19→19:10)
[2021-09-15] MEDS: FENTANYL 2000MCG/NS 250 250 ML IV PRN ×5 (04:40→19:10)
[2021-09-15 05:06] LABS: BASOPHILS % 0.3 % (0.0-1.0); EOSINOPHILS # (AUTO) 0.1 (0.0-0.4); EOSINOPHILS % 0.9 % (0.0-6.0); HEMATOCRIT 33.9 % (38.2-49.6); HEMOGLOBIN 11.2 g/dL (14.0-18.0); LYMPHOCYTES # (AUTO) 1.5 (1.0-3.2); LYMPHOCYTES % 13.1 % (18.0-39.1); MEAN CORPUSCULAR HEMOGLOBIN 30.4 pg (28-32); MEAN CORPUSCULAR VOLUME 92.1 fL (81-99); MONOCYTES # (AUTO) 0.9 (0.2-0.8); MONOCYTES % 7.7 % (4.4-11.3); NEUTROPHILS # (AUTO) 8.3 (2.1-6.9); PLATELET COUNT 393 x10e3/uL (140-360); RED BLOOD COUNT 3.68 x10e6/uL (4.3-5.7); RED CELL DISTRIBUTION WIDTH 12.6 % (11.7-14.4)
[2021-09-15] MEDS: ALBUTEROL SULFATE HFA 8GM INHALATION AEROSOL INH SCH ×4 (06:00→18:00)
[2021-09-15 06:08] LABS: ALBUMIN 2.2 g/dL (3.5-5.0); ALBUMIN/GLOBULIN RATIO 0.6 (0.8-2.0); ANION GAP 8.4 mmol/L (8-16); CALCIUM 8.4 mg/dL (8.4-10.2); CREATININE, SERUM 0.79 mg/dL (0.72-1.25); POTASSIUM 4.4 mmol/L (3.5-5.1)
[2021-09-15] MEDS: FUROSEMIDE INJ 10 MG/ML 4 ML VIAL IV SCH (09:23)
[2021-09-15] MEDS: ASCORBIC ACID 500 MG TAB PO SCH ×2 (09:23→17:55)
[2021-09-15] MEDS: ZINC SULFATE 50 MG CAP PO SCH (09:23)
[2021-09-15] MEDS: ENOXAPARIN SODIUM INJ 100 MG/ML SYR SC SCH ×2 (09:23→20:30)
[2021-09-15] MEDS: METHYLPREDNISOLONE SOD SUCC 40 MG/ML VIAL 1ML IV SCH (09:51)
[2021-09-15 09:57] LABS: ABG HCO3 33 mmol/L (22-26); ABG PCO2 45 mmHg (35-45); ABG PH 7.47 (7.35-7.45); ABG PO2 81 mmHg (80-105); ABG TCO2 34
[2021-09-15] MEDS: MUPIROCIN 2% OINT 22 GM TUBE TOP SCH (12:22)
[2021-09-15] MEDS: METOCLOPRAMIDE HCL 10MG/10ML UDC GT SCH ×3 (12:22→20:30)
[2021-09-15] MEDS ORDERED: PROPOFOL IV EMULSION 10MG/ML 100 ML ONE (12:47)
[2021-09-15] MEDS: PROPOFOL IV EMULSION 10MG/ML 100 ML IV SCH ×3 (13:02→23:39)
[2021-09-15] MEDS: HYDRALAZINE HCL 25 MG TAB PO SCH (13:15)
[2021-09-15] MEDS ORDERED: ACETAZOLAMIDE 250 MG TAB PO SCH (13:30)
[2021-09-15] MEDS ORDERED: HYDRALAZINE HCL 25 MG TAB PO SCH (13:45)
[2021-09-15] MEDS ORDERED: METOPROLOL TARTRATE INJ 1 MG/ML VIAL IV ONE (13:45)
[2021-09-15] MEDS: ACETAZOLAMIDE SODIUM 500 MG/VIAL IV SCH (14:16)
[2021-09-15 18:00] LABS: ABG HCO3 40 mmol/L (22-26); ABG PCO2 55 mmHg (35-45); ABG PH 7.46 (7.35-7.45); ABG PO2 94 mmHg (80-105); ABG TCO2 41
[2021-09-15] MEDS: INSULIN GLARGINE 100 UNITS/ML VIAL SQ SCH (20:30)
[2021-09-15] MEDS: ATORVASTATIN 10 MG TAB PO SCH (20:30)
[2021-09-15] MEDS: ROCURONIUM 1250MG/NS 250 250 ML IV PRN (23:37)
[2021-09-16] VITALS (16 sets, daily range): BP systolic 77–180; BP diastolic 45–91
[2021-09-16] MEDS: INSULIN LISPRO 100 UNIT/1 ML 3ML VIAL SQ SCH ×4 (00:19→18:21)
[2021-09-16] MEDS: MIDAZOLAM HCL 5MG/ML 10ML VIAL 100 ML IV PRN ×4 (00:20→21:20)
[2021-09-16] MEDS: FENTANYL 2000MCG/NS 250 250 ML IV PRN ×2 (00:20→18:27)
[2021-09-16] MEDS: PROPOFOL IV EMULSION 10MG/ML 100 ML IV SCH ×4 (04:32→17:29)
[2021-09-16 05:19] LABS: BASOPHILS % 0.4 % (0.0-1.0); EOSINOPHILS # (AUTO) 0.1 (0.0-0.4); EOSINOPHILS % 1.1 % (0.0-6.0); HEMATOCRIT 35.1 % (38.2-49.6); HEMOGLOBIN 11.6 g/dL (14.0-18.0); LYMPHOCYTES # (AUTO) 1.5 (1.0-3.2); LYMPHOCYTES % 13.7 % (18.0-39.1); MEAN CORPUSCULAR HEMOGLOBIN 30.6 pg (28-32); MEAN CORPUSCULAR VOLUME 92.6 fL (81-99); MONOCYTES # (AUTO) 1.1 (0.2-0.8); NEUTROPHILS # (AUTO) 7.6 (2.1-6.9); NEUTROPHILS % 67.9 % (38.7-80.0); PLATELET COUNT 388 x10e3/uL (140-360); RED BLOOD COUNT 3.79 x10e6/uL (4.3-5.7); RED CELL DISTRIBUTION WIDTH 12.7 % (11.7-14.4)
[2021-09-16] MEDS: ALBUTEROL SULFATE HFA 8GM INHALATION AEROSOL INH SCH ×5 (06:00→21:00)
[2021-09-16] MEDS: LORAZEPAM 1 MG TAB NG SCH ×3 (06:02→18:20)
[2021-09-16 06:06] LABS: ANION GAP 12.4 mmol/L (8-16); CALCIUM 8.8 mg/dL (8.4-10.2); CREATININE, SERUM 0.78 mg/dL (0.72-1.25); POTASSIUM 4.4 mmol/L (3.5-5.1)
[2021-09-16] MEDS: HYDRALAZINE HCL 25 MG TAB PO SCH (07:47)
[2021-09-16] MEDS: METOCLOPRAMIDE HCL 10MG/10ML UDC GT SCH ×4 (08:01→23:30)
[2021-09-16] MEDS: BALSAM PERU/CASTOR OIL 60 GM OINT...G. TP SCH (09:00)
[2021-09-16] MEDS: MUPIROCIN 2% OINT 22 GM TUBE TOP SCH (09:00)
[2021-09-16] MEDS: ASCORBIC ACID 500 MG TAB PO SCH ×2 (09:00→17:27)
[2021-09-16] MEDS: ENOXAPARIN SODIUM INJ 100 MG/ML SYR SC SCH ×2 (09:00→23:30)
[2021-09-16] MEDS: ZINC SULFATE 50 MG CAP PO SCH (09:00)
[2021-09-16] MEDS: ACETAZOLAMIDE SODIUM 500 MG/VIAL IV SCH (09:00)
[2021-09-16 12:10] LABS: LYMPHOCYTES % (MANUAL) 15 % (19-48); MONOCYTES % (MANUAL) 4 % (3.4-9.0); MYELOCYTES % (MANUAL) 1 % (0-0); NEUTROPHILS % (MANUAL) 80 % (40-74)
[2021-09-16 12:11] LABS: PLATELET ESTIMATE ADEQUATE; PLATELET MORPHOLOGY COMMENT NORMAL; RBC MORPHOLOGY COMMENT NORMAL
[2021-09-16 16:17] LABS: ABG HCO3 28 mmol/L (22-26); ABG PCO2 47 mmHg (35-45); ABG PH 7.39 (7.35-7.45); ABG PO2 91 mmHg (80-105); ABG TCO2 30
[2021-09-16] MEDS ORDERED: DEXMEDETOMIDINE 100 ML IV PRN (20:30)
[2021-09-16] MEDS ORDERED: INSULIN GLARGINE 100 UNITS/ML VIAL SQ SCH (21:00)
[2021-09-16] MEDS: ATORVASTATIN 10 MG TAB PO SCH (23:30)
[2021-09-17] VITALS (12 sets, daily range): BP systolic 93–163; BP diastolic 46–73
[2021-09-17] MEDS: FENTANYL 2000MCG/NS 250 250 ML IV PRN ×4 (00:43→21:53)
[2021-09-17] MEDS: INSULIN GLARGINE 100 UNITS/ML VIAL SQ SCH ×2 (00:51→21:52)
[2021-09-17] MEDS: MIDAZOLAM HCL 5MG/ML 10ML VIAL 100 ML IV PRN ×4 (02:30→19:14)
[2021-09-17] MEDS ORDERED: SODIUM CHLORIDE 0.9% 250ML 250 ML ONE (02:43)
[2021-09-17] MEDS: LORAZEPAM 1 MG TAB NG SCH ×4 (05:33→18:00)
[2021-09-17] MEDS: PROPOFOL IV EMULSION 10MG/ML 100 ML IV SCH ×4 (05:34→19:15)
[2021-09-17] MEDS: ALBUTEROL SULFATE HFA 8GM INHALATION AEROSOL INH SCH ×2 (06:00→12:00)
[2021-09-17 07:08] LABS: BASOPHILS # (AUTO) 0.1 (0.0-0.1); BASOPHILS % 0.3 % (0.0-1.0); EOSINOPHILS # (AUTO) 0.1 (0.0-0.4); EOSINOPHILS % 0.7 % (0.0-6.0); HEMATOCRIT 33.6 % (38.2-49.6); HEMOGLOBIN 10.7 g/dL (14.0-18.0); LYMPHOCYTES # (AUTO) 1.1 (1.0-3.2); LYMPHOCYTES % 6.1 % (18.0-39.1); MEAN CORPUSCULAR HEMOGLOBIN 30.8 pg (28-32); MEAN CORPUSCULAR HGB CONC 31.8 g/dL (31-35); MEAN CORPUSCULAR VOLUME 96.8 fL (81-99); MONOCYTES # (AUTO) 0.7 (0.2-0.8); MONOCYTES % 3.9 % (4.4-11.3); NEUTROPHILS # (AUTO) 15.8 (2.1-6.9); NEUTROPHILS % 87.2 % (38.7-80.0); PLATELET COUNT 314 x10e3/uL (140-360); RED BLOOD COUNT 3.47 x10e6/uL (4.3-5.7); RED CELL DISTRIBUTION WIDTH 13.2 % (11.7-14.4)
[2021-09-17 07:24] LABS: ALBUMIN 2.2 g/dL (3.5-5.0); ALBUMIN/GLOBULIN RATIO 0.6 (0.8-2.0); ANION GAP 16.2 mmol/L (8-16); CALCIUM 8.3 mg/dL (8.4-10.2); CREATININE, SERUM 1.14 mg/dL (0.72-1.25); POTASSIUM 5.2 mmol/L (3.5-5.1)
[2021-09-17] MEDS: INSULIN LISPRO 100 UNIT/1 ML 3ML VIAL SQ SCH ×4 (07:32→18:49)
[2021-09-17] MEDS: HYDRALAZINE HCL 25 MG TAB PO SCH (07:34)
[2021-09-17] MEDS: METOCLOPRAMIDE HCL 10MG/10ML UDC GT SCH ×4 (07:46→21:51)
[2021-09-17 09:00] LABS: ABG HCO3 27 mmol/L (22-26); ABG PCO2 55 mmHg (35-45); ABG PO2 89 mmHg (80-105); ABG TCO2 29
[2021-09-17] MEDS: MUPIROCIN 2% OINT 22 GM TUBE TOP SCH (09:00)
[2021-09-17] MEDS: SODIUM CHLORIDE 0.9% 1000ML 1,000 ML IV SCH ×2 (09:31→09:37)
[2021-09-17] MEDS: ASCORBIC ACID 500 MG TAB PO SCH ×2 (09:37→18:49)
[2021-09-17] MEDS: ZINC SULFATE 50 MG CAP PO SCH (09:37)
[2021-09-17] MEDS: ENOXAPARIN SODIUM INJ 100 MG/ML SYR SC SCH ×2 (09:37→21:51)
[2021-09-17] MEDS: BALSAM PERU/CASTOR OIL 60 GM OINT...G. TP SCH (09:37)
[2021-09-17] MEDS: Vancomycin IV 1 GM in SODIUM CHLORIDE 0.9% 250ML 250 ML IV SCH ×2 (11:43→23:00)
[2021-09-17] MEDS ORDERED: DEXTROSE 50% SYRINGE 50 ML IV STA (13:50)
[2021-09-17] MEDS ORDERED: INSULIN REGULAR, HUMAN 100 UNIT/1 ML IV ONE (14:30)
[2021-09-17] MEDS: PIPERACILLIN/TAZOBACTAM 2.25 GM in SODIUM CHLORIDE 0.9% 50ML 50 ML IV SCH ×2 (15:20→21:54)
[2021-09-17] MEDS: SODIUM BICARBONATE 650 MG TAB PO SCH ×2 (15:21→15:22)
[2021-09-17] MEDS ORDERED: SODIUM BICARBONATE 650 MG TAB PO SCH (17:00)
[2021-09-17] MEDS: ATORVASTATIN 10 MG TAB PO SCH (21:51)
[2021-09-18] VITALS (24 sets, daily range): BP systolic 99–155; BP diastolic 45–71
[2021-09-18] MEDS: MIDAZOLAM HCL 5MG/ML 10ML VIAL 100 ML IV PRN ×5 (01:15→23:00)
[2021-09-18] MEDS: PROPOFOL IV EMULSION 10MG/ML 100 ML IV SCH ×3 (01:15→21:53)
[2021-09-18] MEDS: INSULIN LISPRO 100 UNIT/1 ML 3ML VIAL SQ SCH ×4 (02:36→17:45)
[2021-09-18] MEDS: FENTANYL 2000MCG/NS 250 250 ML IV PRN ×3 (04:49→18:48)
[2021-09-18] MEDS: LORAZEPAM 1 MG TAB NG SCH ×4 (06:00→17:24)
[2021-09-18] MEDS ORDERED: SODIUM CHLORIDE 0.9% 50ML 50 ML ONE (06:24)
[2021-09-18] MEDS: PIPERACILLIN/TAZOBACTAM 2.25 GM in SODIUM CHLORIDE 0.9% 50ML 50 ML IV SCH (06:29)
[2021-09-18] MEDS: ASCORBIC ACID 500 MG TAB PO SCH ×2 (08:42→16:11)
[2021-09-18] MEDS: HYDRALAZINE HCL 25 MG TAB PO SCH (08:42)
[2021-09-18] MEDS: METOCLOPRAMIDE HCL 10MG/10ML UDC GT SCH ×4 (08:42→21:53)
[2021-09-18] MEDS: ZINC SULFATE 50 MG CAP PO SCH (08:42)
[2021-09-18] MEDS: ENOXAPARIN SODIUM INJ 100 MG/ML SYR SC SCH ×2 (08:42→21:53)
[2021-09-18] MEDS: BALSAM PERU/CASTOR OIL 60 GM OINT...G. TP SCH (08:42)
[2021-09-18] MEDS: SODIUM BICARBONATE 650 MG TAB PO SCH ×2 (08:42→14:44)
[2021-09-18] MEDS: ACETAMINOPHEN 325 MG TAB PO PRN ×2 (08:43→16:11)
[2021-09-18 09:52] LABS: BASOPHILS % 0.3 % (0.0-1.0); EOSINOPHILS # (AUTO) 0.1 (0.0-0.4); EOSINOPHILS % 0.9 % (0.0-6.0); HEMATOCRIT 27.8 % (38.2-49.6); HEMOGLOBIN 9.1 g/dL (14.0-18.0); LYMPHOCYTES # (AUTO) 0.7 (1.0-3.2); LYMPHOCYTES % 6.3 % (18.0-39.1); MEAN CORPUSCULAR HEMOGLOBIN 32.5 pg (28-32); MEAN CORPUSCULAR HGB CONC 32.7 g/dL (31-35); MEAN CORPUSCULAR VOLUME 99.3 fL (81-99); MONOCYTES # (AUTO) 0.5 (0.2-0.8); MONOCYTES % 4.9 % (4.4-11.3); NEUTROPHILS # (AUTO) 8.6 (2.1-6.9); PLATELET COUNT 216 x10e3/uL (140-360); RED CELL DISTRIBUTION WIDTH 13.2 % (11.7-14.4)
[2021-09-18 10:15] LABS: ALBUMIN 1.7 g/dL (3.5-5.0); ALBUMIN/GLOBULIN RATIO 0.5 (0.8-2.0); ANION GAP 7.7 mmol/L (8-16); CREATININE, SERUM 0.89 mg/dL (0.72-1.25); POTASSIUM 4.7 mmol/L (3.5-5.1)
[2021-09-18 10:19] LABS: CALCIUM 6.7 mg/dL (8.4-10.2)
[2021-09-18] MEDS: MEROPENEM 500 MG in SODIUM CHLORIDE 0.9% 50ML 50 ML IV SCH ×2 (10:24→17:24)
[2021-09-18] MEDS: Vancomycin IV 1 GM in SODIUM CHLORIDE 0.9% 250ML 250 ML IV SCH ×2 (10:24→21:53)
[2021-09-18 12:32] LABS: ABG HCO3 27 mmol/L (22-26); ABG PCO2 59 mmHg (35-45); ABG PH 7.27 (7.35-7.45); ABG PO2 77 mmHg (80-105); ABG TCO2 29
[2021-09-18] MEDS: ROCURONIUM 1250MG/NS 250 250 ML IV PRN (15:00)
[2021-09-18] MEDS ORDERED: ROCURONIUM 1250MG/NS 250 250 ML ONE (15:06)
[2021-09-18] MEDS ORDERED: CALCIUM GLUCONATE 10% INJ 4.65 MEQ in SODIUM CHLORIDE 0.9% 50ML 50 ML IV ONE (17:00)
[2021-09-18] MEDS ORDERED: FUROSEMIDE INJ 10 MG/ML 4 ML VIAL IV SCH (21:15)
[2021-09-18] MEDS: INSULIN GLARGINE 100 UNITS/ML VIAL SQ SCH (21:54)
[2021-09-19] VITALS (26 sets, daily range): BP systolic 110–184; BP diastolic 49–99
[2021-09-19] MEDS: INSULIN LISPRO 100 UNIT/1 ML 3ML VIAL SQ SCH ×4 (00:37→17:34)
[2021-09-19] MEDS: FENTANYL 2000MCG/NS 250 250 ML IV PRN ×4 (01:15→22:00)
[2021-09-19] MEDS ORDERED: FUROSEMIDE INJ 10 MG/ML 4 ML VIAL ONE (01:28)
[2021-09-19] MEDS: MEROPENEM 500 MG in SODIUM CHLORIDE 0.9% 50ML 50 ML IV SCH ×3 (02:54→17:30)
[2021-09-19] MEDS: PROPOFOL IV EMULSION 10MG/ML 100 ML IV SCH ×6 (03:42→23:41)
[2021-09-19] MEDS: MIDAZOLAM HCL 5MG/ML 10ML VIAL 100 ML IV PRN ×4 (03:45→19:41)
[2021-09-19 05:52] LABS: BASOPHILS % 0.3 % (0.0-1.0); EOSINOPHILS # (AUTO) 0.2 (0.0-0.4); EOSINOPHILS % 1.4 % (0.0-6.0); HEMATOCRIT 31.8 % (38.2-49.6); HEMOGLOBIN 9.7 g/dL (14.0-18.0); LYMPHOCYTES # (AUTO) 0.7 (1.0-3.2); LYMPHOCYTES % 6.5 % (18.0-39.1); MEAN CORPUSCULAR HEMOGLOBIN 30.3 pg (28-32); MEAN CORPUSCULAR HGB CONC 30.5 g/dL (31-35); MEAN CORPUSCULAR VOLUME 99.4 fL (81-99); MONOCYTES # (AUTO) 0.7 (0.2-0.8); MONOCYTES % 6.3 % (4.4-11.3); NEUTROPHILS # (AUTO) 8.6 (2.1-6.9); NEUTROPHILS % 83.2 % (38.7-80.0); PLATELET COUNT 249 x10e3/uL (140-360); RED CELL DISTRIBUTION WIDTH 13.3 % (11.7-14.4)
[2021-09-19 06:07] LABS: CALCIUM 8.4 mg/dL (8.4-10.2); POTASSIUM 4.3 mmol/L (3.5-5.1)
[2021-09-19] MEDS: LORAZEPAM 1 MG TAB NG SCH ×2 (06:19)
[2021-09-19 06:40] LABS: ANION GAP 12.3 mmol/L (8-16); CREATININE, SERUM 1.49 mg/dL (0.72-1.25)
[2021-09-19] MEDS: METOCLOPRAMIDE HCL 10MG/10ML UDC GT SCH ×4 (07:40→21:33)
[2021-09-19] MEDS: ASCORBIC ACID 500 MG TAB PO SCH ×2 (07:41→16:34)
[2021-09-19] MEDS: ACETAMINOPHEN 325 MG TAB PO PRN ×3 (07:41→23:06)
[2021-09-19] MEDS: ZINC SULFATE 50 MG CAP PO SCH (07:41)
[2021-09-19] MEDS: HYDRALAZINE HCL 25 MG TAB PO SCH (07:46)
[2021-09-19] MEDS: BALSAM PERU/CASTOR OIL 60 GM OINT...G. TP SCH (08:11)
[2021-09-19] MEDS: ENOXAPARIN SODIUM INJ 100 MG/ML SYR SC SCH ×2 (08:11→21:33)
[2021-09-19] MEDS: SODIUM BICARBONATE 650 MG TAB PO SCH (08:11)
[2021-09-19] MEDS ORDERED: MAGNESIUM HYDROXIDE 30 ML UDC PO PRN (08:30)
[2021-09-19] MEDS ORDERED: LACTULOSE SYRUP 20 GM/30 ML UDC PO PRN (08:30)
[2021-09-19] MEDS ORDERED: MAGNESIUM HYDROXIDE 30 ML UDC PO NR (08:30)
[2021-09-19] MEDS: Vancomycin IV 1 GM in SODIUM CHLORIDE 0.9% 250ML 250 ML IV SCH (08:56)
[2021-09-19 09:52] LABS: ABG HCO3 30 mmol/L (22-26); ABG PCO2 52 mmHg (35-45); ABG PH 7.36 (7.35-7.45); ABG PO2 91 mmHg (80-105); ABG TCO2 31
[2021-09-19] MEDS ORDERED: FUROSEMIDE INJ 10 MG/ML 4 ML VIAL IV ONE (12:00)
[2021-09-19] MEDS ORDERED: SODIUM CHLORIDE 0.9% 1000ML 1,000 ML ONE (17:03)
[2021-09-19] MEDS: ROCURONIUM 1250MG/NS 250 250 ML IV PRN (17:55)
[2021-09-19] MEDS: INSULIN GLARGINE 100 UNITS/ML VIAL SQ SCH (21:45)
[2021-09-20] VITALS (31 sets, daily range): BP systolic 118–165; BP diastolic 58–89
[2021-09-20] MEDS: INSULIN LISPRO 100 UNIT/1 ML 3ML VIAL SQ SCH ×4 (00:45→17:53)
[2021-09-20] MEDS: MIDAZOLAM HCL 5MG/ML 10ML VIAL 100 ML IV PRN ×5 (00:45→21:27)
[2021-09-20] MEDS: MEROPENEM 500 MG in SODIUM CHLORIDE 0.9% 50ML 50 ML IV SCH ×3 (02:57→17:03)
[2021-09-20] MEDS: FENTANYL 2000MCG/NS 250 250 ML IV PRN ×3 (04:48→18:55)
[2021-09-20 05:35] LABS: BASOPHILS # (AUTO) 0.1 (0.0-0.1); BASOPHILS % 0.4 % (0.0-1.0); EOSINOPHILS # (AUTO) 0.1 (0.0-0.4); EOSINOPHILS % 0.9 % (0.0-6.0); HEMATOCRIT 34.4 % (38.2-49.6); HEMOGLOBIN 10.6 g/dL (14.0-18.0); LYMPHOCYTES # (AUTO) 0.5 (1.0-3.2); MEAN CORPUSCULAR HEMOGLOBIN 30.4 pg (28-32); MEAN CORPUSCULAR HGB CONC 30.8 g/dL (31-35); MEAN CORPUSCULAR VOLUME 98.6 fL (81-99); MONOCYTES # (AUTO) 0.7 (0.2-0.8); MONOCYTES % 5.8 % (4.4-11.3); NEUTROPHILS # (AUTO) 10.2 (2.1-6.9); PLATELET COUNT 297 x10e3/uL (140-360); RED BLOOD COUNT 3.49 x10e6/uL (4.3-5.7); RED CELL DISTRIBUTION WIDTH 13.8 % (11.7-14.4)
[2021-09-20 06:10] LABS: ALBUMIN 1.7 g/dL (3.5-5.0); ALBUMIN/GLOBULIN RATIO 0.4 (0.8-2.0); ANION GAP 14.2 mmol/L (8-16); CALCIUM 8.4 mg/dL (8.4-10.2)
[2021-09-20 06:22] LABS: POTASSIUM 5.2 mmol/L (3.5-5.1)
[2021-09-20] MEDS: PROPOFOL IV EMULSION 10MG/ML 100 ML IV SCH ×5 (06:37→21:59)
[2021-09-20 06:40] LABS: CREATININE, SERUM 1.76 mg/dL (0.72-1.25)
[2021-09-20] MEDS: BALSAM PERU/CASTOR OIL 60 GM OINT...G. TP SCH (09:09)
[2021-09-20] MEDS: ZINC SULFATE 50 MG CAP PO SCH (09:09)
[2021-09-20] MEDS: ASCORBIC ACID 500 MG TAB PO SCH ×2 (09:09→15:53)
[2021-09-20] MEDS: ENOXAPARIN SODIUM INJ 100 MG/ML SYR SC SCH (09:09)
[2021-09-20] MEDS: HYDRALAZINE HCL 25 MG TAB PO SCH (09:09)
[2021-09-20] MEDS: METOCLOPRAMIDE HCL 10MG/10ML UDC GT SCH ×4 (09:09→20:45)
[2021-09-20] MEDS: ACETAMINOPHEN 325 MG TAB PO PRN ×2 (09:16→15:53)
[2021-09-20 09:46] LABS: ABG PCO2 70 mmHg (35-45); ABG PH 7.27 (7.35-7.45)
[2021-09-20 09:47] LABS: ABG HCO3 33 mmol/L (22-26); ABG PO2 61 mmHg (80-105); ABG TCO2 35
[2021-09-20] MEDS ORDERED: DEXTROSE 50% SYRINGE 50 ML IV STA (15:28)
[2021-09-20] MEDS ORDERED: INSULIN REGULAR, HUMAN 100 UNIT/1 ML IV ONE (15:30)
[2021-09-20] MEDS: INSULIN GLARGINE 100 UNITS/ML VIAL SQ SCH (20:47)
[2021-09-21] VITALS (17 sets, daily range): BP systolic 126–174; BP diastolic 62–85
[2021-09-21] MEDS: INSULIN LISPRO 100 UNIT/1 ML 3ML VIAL SQ SCH ×5 (00:21→23:51)
[2021-09-21] MEDS: ROCURONIUM 1250MG/NS 250 250 ML IV PRN (00:25)
[2021-09-21] MEDS: MEROPENEM 500 MG in SODIUM CHLORIDE 0.9% 50ML 50 ML IV SCH ×3 (01:58→17:21)
[2021-09-21] MEDS: FENTANYL 2000MCG/NS 250 250 ML IV PRN ×3 (02:00→23:10)
[2021-09-21] MEDS: PROPOFOL IV EMULSION 10MG/ML 100 ML IV SCH ×6 (02:27→20:27)
[2021-09-21] MEDS: MIDAZOLAM HCL 5MG/ML 10ML VIAL 100 ML IV PRN ×4 (02:42→23:52)
[2021-09-21 05:48] LABS: BASOPHILS # (AUTO) 0.1 (0.0-0.1); BASOPHILS % 0.6 % (0.0-1.0); EOSINOPHILS # (AUTO) 0.2 (0.0-0.4); EOSINOPHILS % 2.1 % (0.0-6.0); HEMATOCRIT 32.9 % (38.2-49.6); HEMOGLOBIN 10.1 g/dL (14.0-18.0); LYMPHOCYTES # (AUTO) 0.6 (1.0-3.2); LYMPHOCYTES % 6.2 % (18.0-39.1); MEAN CORPUSCULAR HEMOGLOBIN 30.1 pg (28-32); MEAN CORPUSCULAR HGB CONC 30.7 g/dL (31-35); MEAN CORPUSCULAR VOLUME 98.2 fL (81-99); MONOCYTES # (AUTO) 0.8 (0.2-0.8); MONOCYTES % 8.2 % (4.4-11.3); NEUTROPHILS # (AUTO) 7.9 (2.1-6.9); NEUTROPHILS % 78.6 % (38.7-80.0); PLATELET COUNT 241 x10e3/uL (140-360); RED BLOOD COUNT 3.35 x10e6/uL (4.3-5.7); RED CELL DISTRIBUTION WIDTH 13.8 % (11.7-14.4)
[2021-09-21] MEDS: METHYLPREDNISOLONE SOD SUCC 40 MG/ML VIAL 1ML IV SCH ×2 (05:59→17:56)
[2021-09-21 06:25] LABS: ALBUMIN 1.7 g/dL (3.5-5.0); ALBUMIN/GLOBULIN RATIO 0.4 (0.8-2.0); ANION GAP 13.3 mmol/L (8-16); CALCIUM 8.4 mg/dL (8.4-10.2); CREATININE, SERUM 1.77 mg/dL (0.72-1.25); POTASSIUM 5.3 mmol/L (3.5-5.1)
[2021-09-21] MEDS: METOCLOPRAMIDE HCL 10MG/10ML UDC GT SCH ×4 (08:27→20:29)
[2021-09-21 08:41] LABS: ABG HCO3 34 mmol/L (22-26); ABG PCO2 73 mmHg (35-45); ABG PH 7.28 (7.35-7.45); ABG PO2 72 mmHg (80-105); ABG TCO2 36
[2021-09-21] MEDS: ZINC SULFATE 50 MG CAP PO SCH (09:09)
[2021-09-21] MEDS: BALSAM PERU/CASTOR OIL 60 GM OINT...G. TP SCH (09:09)
[2021-09-21] MEDS: ASCORBIC ACID 500 MG TAB PO SCH ×2 (09:09→17:21)
[2021-09-21] MEDS: HYDRALAZINE HCL 25 MG TAB PO SCH (09:23)
[2021-09-21] MEDS ORDERED: DEXTROSE 50% SYRINGE 50 ML IV ONE (14:00)
[2021-09-21] MEDS ORDERED: INSULIN REGULAR, HUMAN 100 UNIT/1 ML IV ONE (14:00)
[2021-09-21] MEDS: INSULIN GLARGINE 100 UNITS/ML VIAL SQ SCH (20:55)
[2021-09-22] VITALS (16 sets, daily range): BP systolic 123–175; BP diastolic 61–91
[2021-09-22] MEDS: PROPOFOL IV EMULSION 10MG/ML 100 ML IV SCH ×5 (01:44→23:30)
[2021-09-22] MEDS: MEROPENEM 500 MG in SODIUM CHLORIDE 0.9% 50ML 50 ML IV SCH ×3 (03:05→17:10)
[2021-09-22] MEDS: INSULIN LISPRO 100 UNIT/1 ML 3ML VIAL SQ SCH ×3 (05:29→17:12)
[2021-09-22] MEDS: MIDAZOLAM HCL 5MG/ML 10ML VIAL 100 ML IV PRN ×3 (05:30→21:42)
[2021-09-22 06:11] LABS: BASOPHILS # (AUTO) 0.1 (0.0-0.1); BASOPHILS % 0.6 % (0.0-1.0); EOSINOPHILS # (AUTO) 0.1 (0.0-0.4); EOSINOPHILS % 1.4 % (0.0-6.0); HEMATOCRIT 32.1 % (38.2-49.6); HEMOGLOBIN 9.9 g/dL (14.0-18.0); LYMPHOCYTES # (AUTO) 0.8 (1.0-3.2); MEAN CORPUSCULAR HEMOGLOBIN 30.5 pg (28-32); MEAN CORPUSCULAR HGB CONC 30.8 g/dL (31-35); MEAN CORPUSCULAR VOLUME 98.8 fL (81-99); MONOCYTES # (AUTO) 0.6 (0.2-0.8); MONOCYTES % 6.5 % (4.4-11.3); NEUTROPHILS # (AUTO) 7.7 (2.1-6.9); NEUTROPHILS % 79.1 % (38.7-80.0); PLATELET COUNT 234 x10e3/uL (140-360); RED BLOOD COUNT 3.25 x10e6/uL (4.3-5.7); RED CELL DISTRIBUTION WIDTH 13.6 % (11.7-14.4)
[2021-09-22 06:30] LABS: ANION GAP 12.3 mmol/L (8-16); CALCIUM 8.6 mg/dL (8.4-10.2); CREATININE, SERUM 1.52 mg/dL (0.72-1.25); POTASSIUM 5.3 mmol/L (3.5-5.1)
[2021-09-22] MEDS: METHYLPREDNISOLONE SOD SUCC 40 MG/ML VIAL 1ML IV SCH ×2 (06:44→21:09)
[2021-09-22] MEDS: METOCLOPRAMIDE HCL 10MG/10ML UDC GT SCH ×4 (07:53→21:09)
[2021-09-22] MEDS: BALSAM PERU/CASTOR OIL 60 GM OINT...G. TP SCH (09:17)
[2021-09-22] MEDS: ZINC SULFATE 50 MG CAP PO SCH (09:17)
[2021-09-22] MEDS: HYDRALAZINE HCL 25 MG TAB PO SCH (09:17)
[2021-09-22] MEDS: ASCORBIC ACID 500 MG TAB PO SCH ×2 (09:17→16:53)
[2021-09-22 09:54] LABS: ABG PH 7.34 (7.35-7.45)
[2021-09-22 09:55] LABS: ABG HCO3 36 mmol/L (22-26); ABG PCO2 67 mmHg (35-45); ABG PO2 88 mmHg (80-105); ABG TCO2 38
[2021-09-22] MEDS: FENTANYL 2000MCG/NS 250 250 ML IV SCH ×2 (11:57→21:10)
[2021-09-22] MEDS ORDERED: INSULIN REGULAR, HUMAN 100 UNIT/1 ML IV ONE (12:00)
[2021-09-22] MEDS ORDERED: DEXTROSE 50% SYRINGE 50 ML IV STA (12:00)
[2021-09-22] MEDS: INSULIN GLARGINE 100 UNITS/ML VIAL SQ SCH (21:09)
[2021-09-23] VITALS (24 sets, daily range): BP systolic 98–178; BP diastolic 80–113
[2021-09-23] MEDS: INSULIN LISPRO 100 UNIT/1 ML 3ML VIAL SQ SCH ×4 (00:16→18:12)
[2021-09-23] MEDS: MEROPENEM 500 MG in SODIUM CHLORIDE 0.9% 50ML 50 ML IV SCH ×3 (02:13→17:07)
[2021-09-23] MEDS: MIDAZOLAM HCL 5MG/ML 10ML VIAL 100 ML IV PRN ×4 (03:01→23:20)
[2021-09-23] MEDS: PROPOFOL IV EMULSION 10MG/ML 100 ML IV SCH ×8 (03:18→22:44)
[2021-09-23] MEDS: FENTANYL 2000MCG/NS 250 250 ML IV SCH ×3 (04:06→17:31)
[2021-09-23] MEDS: METHYLPREDNISOLONE SOD SUCC 40 MG/ML VIAL 1ML IV SCH ×2 (06:21→18:13)
[2021-09-23 06:42] LABS: ANION GAP 13.1 mmol/L (8-16); CALCIUM 8.8 mg/dL (8.4-10.2); CREATININE, SERUM 1.35 mg/dL (0.72-1.25); POTASSIUM 5.1 mmol/L (3.5-5.1)
[2021-09-23 08:06] LABS: CALCIUM IONIZED 1.2 mmol/L (1.09-1.30)
[2021-09-23] MEDS: HYDRALAZINE HCL 25 MG TAB PO SCH (08:39)
[2021-09-23] MEDS ORDERED: MEROPENEM 500 MG VIAL ONE (08:54)
[2021-09-23] MEDS: ASCORBIC ACID 500 MG TAB PO SCH ×2 (09:12→17:07)
[2021-09-23] MEDS: ZINC SULFATE 50 MG CAP PO SCH (09:12)
[2021-09-23] MEDS: METOCLOPRAMIDE HCL 10MG/10ML UDC GT SCH ×4 (09:12→21:30)
[2021-09-23] MEDS: ROCURONIUM 1250MG/NS 250 250 ML IV PRN (09:13)
[2021-09-23] MEDS: BALSAM PERU/CASTOR OIL 60 GM OINT...G. TP SCH (09:13)
[2021-09-23] MEDS: INSULIN GLARGINE 100 UNITS/ML VIAL SQ SCH (21:33)
[2021-09-24] VITALS (25 sets, daily range): BP systolic 117–174; BP diastolic 73–90
[2021-09-24] MEDS: INSULIN LISPRO 100 UNIT/1 ML 3ML VIAL SQ SCH ×5 (00:09→23:44)
[2021-09-24] MEDS: FENTANYL 2000MCG/NS 250 250 ML IV SCH ×4 (00:42→21:40)
[2021-09-24] MEDS: PROPOFOL IV EMULSION 10MG/ML 100 ML IV SCH ×11 (01:02→23:42)
[2021-09-24] MEDS: MEROPENEM 500 MG in SODIUM CHLORIDE 0.9% 50ML 50 ML IV SCH ×3 (02:40→17:03)
[2021-09-24] MEDS: MIDAZOLAM HCL 5MG/ML 10ML VIAL 100 ML IV PRN ×4 (05:21→19:58)
[2021-09-24 06:07] LABS: BASOPHILS % 0.3 % (0.0-1.0); EOSINOPHILS # (AUTO) 0.3 (0.0-0.4); HEMATOCRIT 26.6 % (38.2-49.6); HEMOGLOBIN 8.7 g/dL (14.0-18.0); LYMPHOCYTES # (AUTO) 0.8 (1.0-3.2); LYMPHOCYTES % 8.1 % (18.0-39.1); MEAN CORPUSCULAR HEMOGLOBIN 33.9 pg (28-32); MEAN CORPUSCULAR HGB CONC 32.7 g/dL (31-35); MEAN CORPUSCULAR VOLUME 103.5 fL (81-99); MONOCYTES # (AUTO) 0.4 (0.2-0.8); MONOCYTES % 4.4 % (4.4-11.3); NEUTROPHILS # (AUTO) 7.4 (2.1-6.9); NEUTROPHILS % 79.8 % (38.7-80.0); PLATELET COUNT 190 x10e3/uL (140-360); RED BLOOD COUNT 2.57 x10e6/uL (4.3-5.7); RED CELL DISTRIBUTION WIDTH 13.6 % (11.7-14.4)
[2021-09-24] MEDS: METHYLPREDNISOLONE SOD SUCC 40 MG/ML VIAL 1ML IV SCH ×2 (06:12→17:51)
[2021-09-24 06:26] LABS: ANION GAP 14.9 mmol/L (8-16); CREATININE, SERUM 1.16 mg/dL (0.72-1.25); POTASSIUM 4.9 mmol/L (3.5-5.1)
[2021-09-24] MEDS: METOCLOPRAMIDE HCL 10MG/10ML UDC GT SCH ×4 (07:47→21:35)
[2021-09-24] MEDS: ZINC SULFATE 50 MG CAP PO SCH (08:34)
[2021-09-24] MEDS: HYDRALAZINE HCL 25 MG TAB PO SCH ×2 (08:34→21:37)
[2021-09-24] MEDS: BALSAM PERU/CASTOR OIL 60 GM OINT...G. TP SCH (08:34)
[2021-09-24] MEDS: ASCORBIC ACID 500 MG TAB PO SCH ×2 (08:34→17:03)
[2021-09-24] MEDS ORDERED: METOPROLOL TARTRATE INJ 1 MG/ML VIAL IV NR (16:45)
[2021-09-24] MEDS: INSULIN GLARGINE 100 UNITS/ML VIAL SQ SCH (21:55)
[2021-09-24] MEDS: ACETAMINOPHEN 325 MG TAB PO PRN (21:58)
[2021-09-25] VITALS (16 sets, daily range): BP systolic 107–172; BP diastolic 67–88
[2021-09-25] MEDS: MIDAZOLAM HCL 5MG/ML 10ML VIAL 100 ML IV PRN ×5 (00:56→22:31)
[2021-09-25] MEDS: PROPOFOL IV EMULSION 10MG/ML 100 ML IV SCH ×8 (02:00→20:15)
[2021-09-25] MEDS: MEROPENEM 500 MG in SODIUM CHLORIDE 0.9% 50ML 50 ML IV SCH ×3 (02:00→17:55)
[2021-09-25] MEDS: FENTANYL 2000MCG/NS 250 250 ML IV SCH ×3 (03:46→18:15)
[2021-09-25] MEDS: INSULIN LISPRO 100 UNIT/1 ML 3ML VIAL SQ SCH ×3 (06:00→18:01)
[2021-09-25] MEDS: METHYLPREDNISOLONE SOD SUCC 40 MG/ML VIAL 1ML IV SCH ×2 (08:16→18:01)
[2021-09-25] MEDS: METOCLOPRAMIDE HCL 10MG/10ML UDC GT SCH ×4 (08:16→21:34)
[2021-09-25] MEDS: HYDRALAZINE HCL 25 MG TAB PO SCH ×2 (08:47→16:18)
[2021-09-25] MEDS: ZINC SULFATE 50 MG CAP PO SCH (09:20)
[2021-09-25] MEDS: ASCORBIC ACID 500 MG TAB PO SCH ×2 (09:20→16:18)
[2021-09-25] MEDS: BALSAM PERU/CASTOR OIL 60 GM OINT...G. TP SCH (09:20)
[2021-09-25 14:18] LABS: ABG HCO3 34 mmol/L (22-26); ABG PCO2 53 mmHg (35-45); ABG PH 7.42 (7.35-7.45); ABG PO2 83 mmHg (80-105); ABG TCO2 36
[2021-09-25 14:32] LABS: ANION GAP 15.7 mmol/L (8-16); CALCIUM 7.5 mg/dL (8.4-10.2); CREATININE, SERUM 1.1 mg/dL (0.72-1.25); POTASSIUM 3.7 mmol/L (3.5-5.1)
[2021-09-25] MEDS: INSULIN GLARGINE 100 UNITS/ML VIAL SQ SCH (21:00)
[2021-09-26] VITALS (24 sets, daily range): BP systolic 99–157; BP diastolic 63–86
[2021-09-26] MEDS: PROPOFOL IV EMULSION 10MG/ML 100 ML IV SCH ×8 (00:23→21:37)
[2021-09-26] MEDS: FENTANYL 2000MCG/NS 250 250 ML IV SCH ×4 (00:59→21:22)
[2021-09-26] MEDS: MEROPENEM 500 MG in SODIUM CHLORIDE 0.9% 50ML 50 ML IV SCH ×2 (02:34→09:49)
[2021-09-26] MEDS: ACETAMINOPHEN 325 MG TAB PO PRN ×2 (03:46→20:40)
[2021-09-26] MEDS: MIDAZOLAM HCL 5MG/ML 10ML VIAL 100 ML IV PRN ×4 (03:53→19:40)
[2021-09-26 05:35] LABS: BASOPHILS % 0.2 % (0.0-1.0); EOSINOPHILS # (AUTO) 0.6 (0.0-0.4); EOSINOPHILS % 4.3 % (0.0-6.0); HEMATOCRIT 29.8 % (38.2-49.6); HEMOGLOBIN 9.5 g/dL (14.0-18.0); LYMPHOCYTES # (AUTO) 1.2 (1.0-3.2); LYMPHOCYTES % 8.5 % (18.0-39.1); MEAN CORPUSCULAR HEMOGLOBIN 31.8 pg (28-32); MEAN CORPUSCULAR HGB CONC 31.9 g/dL (31-35); MEAN CORPUSCULAR VOLUME 99.7 fL (81-99); MONOCYTES # (AUTO) 0.4 (0.2-0.8); NEUTROPHILS # (AUTO) 11.1 (2.1-6.9); NEUTROPHILS % 81.3 % (38.7-80.0); PLATELET COUNT 231 x10e3/uL (140-360); RED BLOOD COUNT 2.99 x10e6/uL (4.3-5.7); RED CELL DISTRIBUTION WIDTH 13.7 % (11.7-14.4)
[2021-09-26 05:59] LABS: ANION GAP 15.6 mmol/L (8-16); CREATININE, SERUM 1.21 mg/dL (0.72-1.25)
[2021-09-26] MEDS: INSULIN LISPRO 100 UNIT/1 ML 3ML VIAL SQ SCH ×4 (06:00→18:09)
[2021-09-26 06:02] LABS: CALCIUM 6.7 mg/dL (8.4-10.2); POTASSIUM 5.6 mmol/L (3.5-5.1)
[2021-09-26] MEDS ORDERED: DEXTROSE 25% INJ 10 ML SYR IV ONE (08:00)
[2021-09-26] MEDS ORDERED: CALCIUM GLUCONATE 10% INJ 9.3 MEQ in SODIUM CHLORIDE 0.9% 100 ML 100 ML IV ONE (08:30)
[2021-09-26] MEDS ORDERED: INSULIN REGULAR, HUMAN 100 UNIT/1 ML SQ ONE (08:35)
[2021-09-26] MEDS ORDERED: DEXTROSE 50% SYRINGE 50 ML IV ONE (08:40)
[2021-09-26] MEDS: METHYLPREDNISOLONE SOD SUCC 40 MG/ML VIAL 1ML IV SCH (09:46)
[2021-09-26] MEDS: ZINC SULFATE 50 MG CAP PO SCH (09:47)
[2021-09-26] MEDS: ASCORBIC ACID 500 MG TAB PO SCH ×2 (09:47→16:20)
[2021-09-26] MEDS: HYDRALAZINE HCL 25 MG TAB PO SCH ×2 (09:47→16:19)
[2021-09-26] MEDS: METOCLOPRAMIDE HCL 10MG/10ML UDC GT SCH ×4 (09:47→20:39)
[2021-09-26] MEDS: BALSAM PERU/CASTOR OIL 60 GM OINT...G. TP SCH (09:48)
[2021-09-26] MEDS ORDERED: FUROSEMIDE INJ 10 MG/ML 4 ML VIAL IV ONE ×2 (12:00→12:45)
[2021-09-26] MEDS: DEXMEDETOMIDINE 400MCG/NS100ML 100 ML IV PRN (13:30)
[2021-09-26] MEDS: ROCURONIUM 1250MG/NS 250 250 ML IV PRN (13:30)
[2021-09-26 13:35] LABS: ABG PH 7.35 (7.35-7.45)
[2021-09-26 13:36] LABS: ABG HCO3 33 mmol/L (22-26); ABG PCO2 61 mmHg (35-45); ABG PO2 72 mmHg (80-105); ABG TCO2 35
[2021-09-26 13:58] LABS: CALCIUM 7.1 mg/dL (8.4-10.2); CREATININE, SERUM 1.03 mg/dL (0.72-1.25)
[2021-09-26] MEDS: INSULIN GLARGINE 100 UNITS/ML VIAL SQ SCH (20:39)
[2021-09-27] VITALS (25 sets, daily range): BP systolic 111–159; BP diastolic 64–96
[2021-09-27] MEDS: INSULIN LISPRO 100 UNIT/1 ML 3ML VIAL SQ SCH ×4 (00:43→18:12)
[2021-09-27] MEDS: PROPOFOL IV EMULSION 10MG/ML 100 ML IV SCH ×6 (01:00→21:37)
[2021-09-27] MEDS: MIDAZOLAM HCL 5MG/ML 10ML VIAL 100 ML IV PRN ×5 (01:00→21:38)
[2021-09-27] MEDS: ACETAMINOPHEN 325 MG TAB PO PRN ×2 (03:40→13:25)
[2021-09-27] MEDS: FENTANYL 2000MCG/NS 250 250 ML IV SCH ×3 (04:35→18:03)
[2021-09-27 05:15] LABS: BASOPHILS # (AUTO) 0.1 (0.0-0.1); BASOPHILS % 0.4 % (0.0-1.0); EOSINOPHILS # (AUTO) 0.8 (0.0-0.4); EOSINOPHILS % 4.9 % (0.0-6.0); HEMATOCRIT 28.2 % (38.2-49.6); HEMOGLOBIN 9.2 g/dL (14.0-18.0); LYMPHOCYTES # (AUTO) 0.9 (1.0-3.2); LYMPHOCYTES % 5.8 % (18.0-39.1); MEAN CORPUSCULAR HEMOGLOBIN 31.9 pg (28-32); MEAN CORPUSCULAR HGB CONC 32.6 g/dL (31-35); MEAN CORPUSCULAR VOLUME 97.9 fL (81-99); MONOCYTES # (AUTO) 0.4 (0.2-0.8); MONOCYTES % 2.6 % (4.4-11.3); NEUTROPHILS # (AUTO) 13.3 (2.1-6.9); PLATELET COUNT 230 x10e3/uL (140-360); RED BLOOD COUNT 2.88 x10e6/uL (4.3-5.7); RED CELL DISTRIBUTION WIDTH 13.5 % (11.7-14.4)
[2021-09-27 05:48] LABS: ALBUMIN 1.6 g/dL (3.5-5.0); ALBUMIN/GLOBULIN RATIO 0.3 (0.8-2.0); ANION GAP 15.3 mmol/L (8-16); CALCIUM 7.7 mg/dL (8.4-10.2); CREATININE, SERUM 1.23 mg/dL (0.72-1.25); POTASSIUM 4.3 mmol/L (3.5-5.1)
[2021-09-27] MEDS: DEXMEDETOMIDINE 400MCG/NS100ML 100 ML IV PRN (06:10)
[2021-09-27] MEDS ORDERED: METHYLPREDNISOLONE SOD SUCC 40 MG/ML VIAL 1ML IV SCH (07:30)
[2021-09-27] MEDS: BALSAM PERU/CASTOR OIL 60 GM OINT...G. TP SCH (08:58)
[2021-09-27] MEDS: ASCORBIC ACID 500 MG TAB PO SCH ×2 (08:58→16:40)
[2021-09-27] MEDS: METOCLOPRAMIDE HCL 10MG/10ML UDC GT SCH ×4 (08:58→21:35)
[2021-09-27] MEDS: ZINC SULFATE 50 MG CAP PO SCH (08:58)
[2021-09-27] MEDS: HYDRALAZINE HCL 25 MG TAB PO SCH ×2 (08:58→16:40)
[2021-09-27] MEDS: TRIMETHOPRIM/SULFAMETHOXAZOLE 40MG/5ML SUSP GT SCH ×3 (10:00→21:35)
[2021-09-27 11:27] LABS: ABG HCO3 35 mmol/L (22-26); ABG PCO2 93 mmHg (35-45); ABG PH 7.18 (7.35-7.45); ABG PO2 68 mmHg (80-105); ABG TCO2 38
[2021-09-27] MEDS: ROCURONIUM 1250MG/NS 250 250 ML IV PRN (14:51)
[2021-09-27 17:56] LABS: ABG PH 7.29 (7.35-7.45)
[2021-09-27 17:57] LABS: ABG HCO3 34 mmol/L (22-26); ABG PCO2 70 mmHg (35-45); ABG PO2 79 mmHg (80-105); ABG TCO2 36
[2021-09-27 19:27] LABS: ABG PCO2 76 mmHg (35-45); ABG PH 7.25 (7.35-7.45)
[2021-09-27 19:28] LABS: ABG HCO3 33 mmol/L (22-26); ABG PO2 85 mmHg (80-105); ABG TCO2 36
[2021-09-27] MEDS: INSULIN GLARGINE 100 UNITS/ML VIAL SQ SCH (21:36)
[2021-09-28] VITALS (19 sets, daily range): BP systolic 117–154; BP diastolic 71–89
[2021-09-28] MEDS: FENTANYL 2000MCG/NS 250 250 ML IV SCH ×3 (01:42→13:57)
[2021-09-28] MEDS: PROPOFOL IV EMULSION 10MG/ML 100 ML IV SCH ×6 (01:43→16:59)
[2021-09-28] MEDS: MIDAZOLAM HCL 5MG/ML 10ML VIAL 100 ML IV PRN ×4 (02:45→17:00)
[2021-09-28] MEDS: ACETAMINOPHEN 325 MG TAB PO PRN (03:57)
[2021-09-28 05:07] LABS: BASOPHILS % 0.3 % (0.0-1.0); EOSINOPHILS # (AUTO) 0.8 (0.0-0.4); EOSINOPHILS % 5.9 % (0.0-6.0); HEMATOCRIT 27.7 % (38.2-49.6); HEMOGLOBIN 9.1 g/dL (14.0-18.0); LYMPHOCYTES # (AUTO) 0.7 (1.0-3.2); LYMPHOCYTES % 5.1 % (18.0-39.1); MEAN CORPUSCULAR HEMOGLOBIN 32.4 pg (28-32); MEAN CORPUSCULAR HGB CONC 32.9 g/dL (31-35); MEAN CORPUSCULAR VOLUME 98.6 fL (81-99); MONOCYTES # (AUTO) 0.6 (0.2-0.8); MONOCYTES % 4.8 % (4.4-11.3); NEUTROPHILS # (AUTO) 10.6 (2.1-6.9); NEUTROPHILS % 81.7 % (38.7-80.0); PLATELET COUNT 223 x10e3/uL (140-360); RED BLOOD COUNT 2.81 x10e6/uL (4.3-5.7); RED CELL DISTRIBUTION WIDTH 13.5 % (11.7-14.4)
[2021-09-28] MEDS: DEXMEDETOMIDINE 400MCG/NS100ML 100 ML IV PRN (05:07)
[2021-09-28] MEDS: INSULIN LISPRO 100 UNIT/1 ML 3ML VIAL SQ SCH ×4 (05:22→17:57)
[2021-09-28 05:53] LABS: ALBUMIN 1.4 g/dL (3.5-5.0); ALBUMIN/GLOBULIN RATIO 0.3 (0.8-2.0); ANION GAP 13.7 mmol/L (8-16); CALCIUM 7.3 mg/dL (8.4-10.2); CREATININE, SERUM 1.16 mg/dL (0.72-1.25); POTASSIUM 4.7 mmol/L (3.5-5.1)
[2021-09-28] MEDS: METOCLOPRAMIDE HCL 10MG/10ML UDC GT SCH ×3 (08:45→17:18)
[2021-09-28] MEDS: TRIMETHOPRIM/SULFAMETHOXAZOLE 40MG/5ML SUSP GT SCH (08:46)
[2021-09-28] MEDS: ZINC SULFATE 50 MG CAP PO SCH (08:46)
[2021-09-28] MEDS: HYDRALAZINE HCL 25 MG TAB PO SCH ×2 (08:46→17:19)
[2021-09-28] MEDS: BALSAM PERU/CASTOR OIL 60 GM OINT...G. TP SCH (08:46)
[2021-09-28] MEDS: ASCORBIC ACID 500 MG TAB PO SCH ×2 (08:46→17:19)
[2021-09-28] MEDS ORDERED: METHYLPREDNISOLONE 4 MG TAB NG SCH (13:00)
[2021-09-28] MEDS: ROCURONIUM 1250MG/NS 250 250 ML IV PRN (17:00)
== END 2021-09-29 | disposition expired | DRG 870 ==
LOC: ER 14:33 → ERHOLD 15:08 → ER 15:52 → ICU 16:00 → MED/SURG 09-28 23:22
PROVIDERS: ADMIT Internal Medicine; ATTEND Internal Medicine
PROC: 02HV33Z Insertion of Infusion Device into Superior Vena Cava, Percutaneous Approach (ICD-10-PCS; 2021-09-03)
PROC: XW043E5 Introduction of Remdesivir Anti-infective into Central Vein, Percutaneous Approach, New Technology Group 5 (ICD-10-PCS; 2021-09-03)
PROC: 5A12012 Performance of Cardiac Output, Single, Manual (ICD-10-PCS; 2021-09-03)
PROC: 02HV33Z Insertion of Infusion Device into Superior Vena Cava, Percutaneous Approach (ICD-10-PCS; 2021-09-03)
PROC: 3E0433Z Introduction of Anti-inflammatory into Central Vein, Percutaneous Approach (ICD-10-PCS; 2021-09-04)
PROC: XW0DXM6 Introduction of Baricitinib into Mouth and Pharynx, External Approach, New Technology Group 6 (ICD-10-PCS; 2021-09-05)
PROC: 5A1955Z Respiratory Ventilation, Greater than 96 Consecutive Hours (ICD-10-PCS; principal; 2021-09-08)
PROC: 0BH18EZ Insertion of Endotracheal Airway into Trachea, Via Natural or Artificial Opening Endoscopic (ICD-10-PCS; 2021-09-08)
PROC: 02HV33Z Insertion of Infusion Device into Superior Vena Cava, Percutaneous Approach (ICD-10-PCS; 2021-09-09)
DX: A41.89 Other specified sepsis (principal); U07.1 COVID-19; J12.82 Pneumonia due to coronavirus disease 2019; J96.01 Acute respiratory failure with hypoxia; J96.02 Acute respiratory failure with hypercapnia; J15.8 Pneumonia due to other specified bacteria; N17.9 Acute kidney failure, unspecified; E87.2 Acidosis; E87.3 Alkalosis; I82.621 Acute embolism and thrombosis of deep veins of right upper extremity; T82.868A Thrombosis due to vascular prosthetic devices, implants and grafts, initial encounter; E11.9 Type 2 diabetes mellitus without complications; E66.9 Obesity, unspecified; E78.00 Pure hypercholesterolemia, unspecified; Z68.32 Body mass index [BMI] 32.0-32.9, adult; I10 Essential (primary) hypertension; Z87.891 Personal history of nicotine dependence; Z72.89 Other problems related to lifestyle; E83.51 Hypocalcemia; R00.1 Bradycardia, unspecified; E87.5 Hyperkalemia; E87.70 Fluid overload, unspecified; I46.9 Cardiac arrest, cause unspecified; Y82.8 Other medical devices associated with adverse incidents; Y92.230 Patient room in hospital as the place of occurrence of the external cause; R21 Rash and other nonspecific skin eruption
CPT/HCPCS: 31500; 36415; 36569; 36600; 71045; 74018; 76700; 80048; 80053; 80202; 82805; 82948; 84145; 84484; 85025; 85730; 87040; 87070; 87086; 87186; 87205; 92950; 93005; 93306; 93971; 94003; 94664; 94799; 96372; 99251; 99284; J0248; J0330; J0456; J0610; J0692; J0696; J1100; J1650; J1815; J1817; J1940; J2020; J2185; J2405; J2543; J2920; J2930; J3370; J7030; J7050; J7070; J7509; J7799; P9047; U0002